=== PATIENT | female | born 1960 | race Caucasian/White ===

== ENCOUNTER 2024-03-06 03:33 | Emergency (ER) | payer OTHER, SELFPAY ==
[2024-03-06 03:37] VITALS: BP 157/91
[2024-03-06 04:03] VITALS: BMI 38.3
[2024-03-06 04:05] VITALS: BP 171/78
--- NOTE | 2024-03-06 04:08 | ED.GENMED ---
History of Present Illness
General
Chief Complaint: Fever
Source: patient
Time Seen by Provider: 03/06/24 03:58
Travel History
Have you had any contact with someone who has COVID-19?: No
Do you have any symptoms of coronavirus? Fever > 100 degrees, chills, cough, shortness of breath, sore throat, loss of taste or smell, muscle aches, or headache?: No
History of Present Illness
History of Present Illness:
64-year-old female presents to the emergency room complaining of fever, body aches. Patient has been feeling unwell for the past couple days. She went to an urgent care today where she had a urine test that was evidently abnormal. She was started
presumptively on antibiotics. Also told she had an ear infection. Patient was prescribed amoxicillin. No specific dysuria or frequency. Patient primarily focuses on the aches and pains she has throughout her body. No specific cough. No
shortness of breath.
Past History
Past History
ED Past Medical History: Asthma, COPD (?), CVA (Left sided weakness), GERD, HTN, Hypercholesterolemia, IDDM, Hypothyroidism, Psychiatric (Anxiety, PTSD) and Other (Cervical fracture, Headache, Endocarditis, Renal calculus, Cellulitis, PNA, Anemia,
DVT, )
ED Past Surgical History: Cholecystectomy, Gynecological (Hysterectomy), Urological (Bladder lift) and Other (Gastric bypass, Tummy tuck, IVC filter)
Social History
Tobacco: Former smoker
Alcohol: None
Drug: None
Personal:
Living: with family
Employment: Employed
Family History
Family History: Hypertension
Phy Exam
Physical Exam
Physical Exam:
General: Awake, Alert, Oriented X3. Patient is chronically ill
Vitals: Febrile 103
Head: Atraumatic
Eyes: Pupils equal, EOMI
Throat: Airway intact, no exudates, dry mucosa
Neck: Trachea midline
Lungs: Clear and equal b/l
Heart: Regular rate, no murmurs
Abd: Soft, Nontender, No pulsatile mass
Neuro: Nonfocal
Skin: Warm, dry, no rash
Extremities: pulses equal b/l, no edema
Course
Orders/Labs/Results
Orders:
Orders
03/06/24 04:06
Cardiac Monitoring- Treatment ONCE
0.9% Sodium Chloride 1000 ml [Nss] 1,000 ml IV BOLUS
Acetaminophen [Tylenol] 650 mg PO NOW STA
CR Chest - 2 Views Urgent
Comment:
Reason For Exam: fever
03/06/24 04:13
Complete Blood Count/With Diff Urgent
Comprehensive Metabolic Panel Urgent
Lactic Acid Q4H
Comment: CANCEL 2nd LACTIC ACID IF 1st LACTIC ACID IS LESS THAN 2
Blood Culture Q30M
ESTHER Source: Blood/Venous
Specimen Description:
Influenza A+B Rapid Molecular Urgent
ESTHER Source: Nasal Swab
Specimen Description:
03/06/24 05:21
Urinalysis Reflex To Culture Urgent
Date Specimen was Collected: 03/06/24
Time Specimen was Collected: 05:19
Urine Microscopic Reflex Cult Urgent
Abnormal Lab Results
03/06/24 03/06/24
04:13 05:21
WBC 13.8 H 10^3/uL
(4.8-10.8)
RBC 3.78 L 10^6/uL
(4.20-5.40)
Hgb 10.9 L g/dL
(12.0-16.0)
Hct 33.3 L %
(37.0-47.0)
MCHC 32.7 L g/dL
(33.0-37.0)
MPV 11.4 H fL
(7.4-10.4)
Abs Immat Gran (auto) 0.1 H 10^3/uL
(0-0.05)
Absolute Neuts (auto) 9.4 H 10^3/uL
(1.4-6.5)
Absolute Lymphs (auto) 3.6 H 10^3/uL
(1.2-3.4)
Absolute Monos (auto) 0.7 H 10^3/uL
(0.1-0.6)
Immature Gran % 0.9 H %
(0-0.5)
Chloride 109 H mmol/L
(98-107)
Carbon Dioxide 20 L mmol/L
(22-30)
BUN 22 H mg/dl
(7-17)
Creatinine 1.2 H mg/dL
(0.6-1.0)
Glucose 115 H mg/dl
(70-99)
AST 43 H U/L
(14-36)
ALT 49 H U/L
(0-35)
Leukocyte Esterase Rfl Trace A
(Negative)
03/06/24 04:13
03/06/24 04:13
Vital Signs
Initial and Last Documented VS:
Initial Vital Signs
Temp Pulse Resp BP Pulse Ox
103 F H 121 20 157/91 94
03/06/24 03:37 03/06/24 03:37 03/06/24 03:37 03/06/24 03:37 03/06/24 03:37
Last Documented Vital Signs
Temp Pulse Resp BP Pulse Ox
99.9 F 102 18 126/75 94
03/06/24 07:07 03/06/24 07:07 03/06/24 07:07 03/06/24 07:07 03/06/24 07:07
MDM/Problems Addressed
Differential Diagnosis Includes:
Dehydration, anemia, UTI, viral syndrome
MDM/Problems Addressed:
Labs show mild elevation white blood cell count. Her hemoglobin is 10.9 which is higher than many previous measurements. Chemistry show mild elevation of BUN and creatinine. LFTs are similar to previous measurements. Overall physical exam is
benign. No clear abnormalities to his require hospitalization. No new findings on chest x-ray.
*Pulse Oximetry
Patient hypoxic: no
*Critical Care Note
Total Time (30-74mins, 75-104mins- exclusive of procedures): Not Applicable
ED Attending Note
-
Portions of this chart may have been created with voice recognition software.� Occasional wrong word or��sound alike� substitutions may have occurred due to the inherent limitations of voice recognition software.
Discharge Plan
Departure
Patient Disposition: Home (Routine Discharge)
Date of Disposition: 03/06/24
Time of Disposition: 06:33
Patient with high blood pressure during this ER visit?: Yes
Condition: Good
Discharge Problem:
Fever
Instructions: Fever, Adult (DC), BLOOD PRESSURE
Prescriptions:
No Action
levothyroxine 175 mcg Tablet
175 mcg PO DAILY AT 0700
ipratropium-albuterol 0.5 mg-3 mg(2.5 mg base)/3 mL Solution For Nebulization
3 ml INHALATION R Q6 PRN (Reason: sob/wheezing)
rosuvastatin 10 mg Tablet
10 mg PO HS
prednisone 1 mg Tablet
4 mg PO DAILY
pantoprazole 40 mg Tablet,Delayed Release (Dr/Ec)
40 mg PO BID Qty: 60 0RF
acetaminophen 325 mg Tablet
650 mg PO Q6H PRN (Reason: increased temp or mild pain)
magnesium hydroxide [Milk of Magnesia] 400 mg/5 mL Suspension
30 ml PO DAILY PRN (Reason: IF NO BM X 3 DYS)
insulin aspart U-100 100 unit/mL (3 mL) Insulin Pen
7 unit SC AC
Patient Comments:
with meals
insulin glargine 100 unit/mL (3 mL) Insulin Pen
25 unit SC HS
Xarelto 20 mg tablet
20 mg PO QPM
acetaminophen 325 mg Tablet
650 mg PO Q4HPRN PRN (Reason: mild pain or temp >/= 100.4 F) Qty: 0 0RF
gabapentin 100 mg capsule
100 mg PO HS
dicyclomine 10 mg capsule
10 mg PO AC
bisacodyl 10 mg Suppository
10 mg VT ONCE PRN (Reason: CONSTIPATION NOT RELEIVED BY MOM)
zinc oxide 10 % Cream
1 applic TOPICAL BID
guaifenesin [Siltussin SA] 100 mg/5 mL liquid
100 mg PO Q4HPRN PRN (Reason: cough)
hydromorphone 4 mg Tablet
4 mg PO Q4HPRN PRN (Reason: moderate to severe pain) Qty: 15 0RF
Referrals:
Wale Slaughter MD [Family Provider] -
Activity Restrictions/Additional Instructions:
Fortunately your testing here does not show signs of a serious infection. Continue the amoxicillin. Your hemoglobin is 10.9, which is much higher than your most recent tests. In addition the other indicators for low iron are normal. Please follow
up with your family doctor for further testing.
Interventions
Interventions:
*Risk Screen - Suicide Last Done: 03/06/24 03:37
*General Assessment Last Done: 03/06/24 03:37
*Neglect/Abuse Screening Last Done: 03/06/24 03:37
ED- Fall Risk Assessment Last Done: 03/06/24 04:05
*ED COVID-19 Vaccine History Last Done: 03/06/24 04:53
*Nursing Disposition Last Done: 03/06/24 07:07
ED- Neurological Assessment Last Done: 03/06/24 04:01
ED-Skin Assessment Last Done: 03/06/24 04:02
Discharge Date and Time
Discharge Date/Time: 03/06/24 07:00
Print Language: WOLOF
[2024-03-06] MEDS: TYLENOL 650 MG PO (04:17)
[2024-03-06] MEDS: NSS 1000 IV (04:18)
[2024-03-06 04:23] LABS: % Basophils 0.6 % (0-2); % Eosinophils 0.3 % (0-6); % Immature Granulocytes 0.9 % (0-0.5); % Lymphocytes 25.7 % (20.5-51.1); % Monocytes 4.7 % (1.7-9.3); % Neutrophils 67.8 % (42.2-75.2); Absolute Basophils 0.1 10^3/uL (0-0.2); Absolute Immature Granulocytes 0.1 10^3/uL (0-0.05); Absolute Lymphocytes 3.6 10^3/uL (1.2-3.4); Absolute Monocytes 0.7 10^3/uL (0.1-0.6); Absolute Neutrophils 9.4 10^3/uL (1.4-6.5); Hematocrit 33.3 % (37.0-47.0); Hemoglobin 10.9 g/dL (12.0-16.0); Mean Corp Hgb Conc. 32.7 g/dL (33.0-37.0); Mean Corpuscular Hgb 28.8 pg (27.0-31.0); Mean Corpuscular Volume 88.1 fL (81.0-99.0); Mean Platelet Volume 11.4 fL (7.4-10.4); Nucleated Red Blood Cells % 0 %; Platelet Count 190 10^3/uL (130-400); Red Blood Cell Count 3.78 10^6/uL (4.20-5.40); White Blood Cell Count 13.8 10^3/uL (4.8-10.8)
[2024-03-06 04:34] LABS: ALT (SGPT) 49 U/L (0-35); AST (SGOT) 43 U/L (14-36); Albumin 3.8 g/dl (3.5-5.0); Alkaline Phosphatase 106 U/L (38-126); Blood Urea Nitrogen 22 mg/dl (7-17); Calcium 8.5 mg/dl (8.4-10.2); Carbon Dioxide 20 mmol/L (22-30); Chloride 109 mmol/L (98-107); Estimated Creatinine Clearance 48 ml/min; Glucose 115 mg/dl (70-99); Lactic Acid 1.1 mmol/L (0.7-2.0); Potassium 4.4 mmol/L (3.5-5.1); Sodium 135 mmol/L (135-145); Total Bilirubin 0.6 mg/dl (0.2-1.3); Total Protein 6.7 g/dl (6.3-8.2); eGFR 50.86
[2024-03-06 05:13] VITALS: BP 154/85
[2024-03-06 05:29] LABS: Urine Albumin Negative (Neg - Trace); Urine Bilirubin Negative (Negative); Urine Character Clear (Clear); Urine Color Yellow; Urine Glucose Negative (Negative); Urine Ketone Negative (Negative); Urine Leukocyte Trace (Negative); Urine Nitrite Negative (Negative); Urine Occult Blood Negative (Negative); Urine Urobilinogen Negative (Neg - 1+)
[2024-03-06 05:39] LABS: Urine Squamous Cell >30 /LPF (Few)
[2024-03-06 05:40] LABS: Urine Red Blood Cell 0-2 /HPF (0-2)
[2024-03-06 06:00] VITALS: BP 126/75
[2024-03-06 07:07] VITALS: BP 126/75
== END 2024-03-06 07:00 | disposition home or self-care (01) ==
LOC: EMR 03:33
PROVIDERS: EMERGENCY PHYSICIAN Emergency Medicine; FAMILY PHYSICIAN Internal Medicine
DX: R50.9 Fever, unspecified (principal); J45.909 Unspecified asthma, uncomplicated; K21.9 Gastro-esophageal reflux disease without esophagitis; I10 Essential (primary) hypertension; E78.00 Pure hypercholesterolemia, unspecified; E11.9 Type 2 diabetes mellitus without complications; E03.9 Hypothyroidism, unspecified; F41.9 Anxiety disorder, unspecified; F43.10 Post-traumatic stress disorder, unspecified; D64.9 Anemia, unspecified; Z82.49 Family history of ischemic heart disease and other diseases of the circulatory system; Z86.718 Personal history of other venous thrombosis and embolism; Z86.73 Personal history of transient ischemic attack (TIA), and cerebral infarction without residual deficits; Z87.442 Personal history of urinary calculi; Z87.891 Personal history of nicotine dependence; Z90.49 Acquired absence of other specified parts of digestive tract; Z90.710 Acquired absence of both cervix and uterus; Z98.84 Bariatric surgery status
CPT/HCPCS: 99283; 71046; 80053; 81003; 81015; 83605; 85025; 87040; 87502

== ENCOUNTER 2024-05-13 03:33 | Emergency (ER) | payer OTHER, SELFPAY ==
[2024-05-13 03:39] VITALS: BP 177/90
[2024-05-13 04:10] LABS: % Basophils 0.5 % (0-2); % Eosinophils 0.9 % (0-6); % Immature Granulocytes 2.8 % (0-0.5); % Lymphocytes 31.1 % (20.5-51.1); % Monocytes 5.6 % (1.7-9.3); % Neutrophils 59.1 % (42.2-75.2); Absolute Basophils 0.1 10^3/uL (0-0.2); Absolute Eosinophils 0.1 10^3/uL (0-0.7); Absolute Immature Granulocytes 0.3 10^3/uL (0-0.05); Absolute Lymphocytes 3.2 10^3/uL (1.2-3.4); Absolute Monocytes 0.6 10^3/uL (0.1-0.6); Absolute Neutrophils 6.2 10^3/uL (1.4-6.5); Hematocrit 30.2 % (37.0-47.0); Hemoglobin 9.8 g/dL (12.0-16.0); Mean Corp Hgb Conc. 32.5 g/dL (33.0-37.0); Mean Corpuscular Hgb 28.3 pg (27.0-31.0); Mean Corpuscular Volume 87.3 fL (81.0-99.0); Mean Platelet Volume 10.8 fL (7.4-10.4); Nucleated Red Blood Cells % 0 %; Platelet Count 166 10^3/uL (130-400); Red Blood Cell Count 3.46 10^6/uL (4.20-5.40); Red Cell Dist. Width 18.6 % (11.5-14.5); White Blood Cell Count 10.4 10^3/uL (4.8-10.8)
[2024-05-13 04:20] VITALS: BP 159/76
[2024-05-13 04:25] LABS: ALT (SGPT) 62 U/L (0-35); AST (SGOT) 51 U/L (14-36); Albumin 3.2 g/dl (3.5-5.0); Alkaline Phosphatase 89 U/L (38-126); Blood Urea Nitrogen 25 mg/dl (7-17); Calcium 9.1 mg/dl (8.4-10.2); Carbon Dioxide 20 mmol/L (22-30); Chloride 112 mmol/L (98-107); Glucose 170 mg/dl (70-99); Potassium 5.4 mmol/L (3.5-5.1); Sodium 139 mmol/L (135-145); Total Bilirubin 0.6 mg/dl (0.2-1.3); Total Protein 6.4 g/dl (6.3-8.2); eGFR > 60.00
[2024-05-13 05:00] VITALS: BP 160/81
[2024-05-13 05:04] LABS: Troponin I 0.014 ng/ml
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
[2024-05-13 05:55] LABS: Urine Albumin Negative (Neg - Trace); Urine Bilirubin Negative (Negative); Urine Character Clear (Clear); Urine Color Yellow; Urine Glucose Negative (Negative); Urine Ketone Negative (Negative); Urine Leukocyte Negative (Negative); Urine Nitrite Negative (Negative); Urine Occult Blood Negative (Negative); Urine Urobilinogen Negative (Neg - 1+)
[2024-05-13] MEDS: MAALOX 50 PO (06:11)
[2024-05-13] MEDS: DILAUDID 1 MG IV (06:12)
[2024-05-13] MEDS: CARAFATE SUSPENSION 1 GM PO (06:18)
[2024-05-13 06:49] VITALS: BP 132/86
== END 2024-05-13 06:50 | disposition home or self-care (01) ==
LOC: EMR 03:33
PROVIDERS: Emergency Medicine; EMERGENCY PHYSICIAN Emergency Medicine; FAMILY PHYSICIAN Internal Medicine
DX: K21.9 Gastro-esophageal reflux disease without esophagitis (principal); E11.9 Type 2 diabetes mellitus without complications; J44.89 Other specified chronic obstructive pulmonary disease; E03.9 Hypothyroidism, unspecified; E78.00 Pure hypercholesterolemia, unspecified; D64.9 Anemia, unspecified; I10 Essential (primary) hypertension; Z79.52 Long term (current) use of systemic steroids; Z82.49 Family history of ischemic heart disease and other diseases of the circulatory system; Z86.718 Personal history of other venous thrombosis and embolism; Z86.73 Personal history of transient ischemic attack (TIA), and cerebral infarction without residual deficits; Z87.442 Personal history of urinary calculi; Z87.891 Personal history of nicotine dependence; Z90.49 Acquired absence of other specified parts of digestive tract; Z90.710 Acquired absence of both cervix and uterus; Z98.84 Bariatric surgery status
CPT/HCPCS: 99283; 96374; 80053; 81003; 84484; 85025; 93005

== ENCOUNTER 2024-08-07 21:10 | Emergency (ER) | payer OTHER, SELFPAY ==
[2024-08-07 21:13] VITALS: BP 156/81
[2024-08-07 21:56] VITALS: BMI 36.3
--- NOTE | 2024-08-07 22:27 | ED.GENMED ---
History of Present Illness
General
Chief Complaint: Eye Problems
Source: patient
Exam Limitations: none
Time Seen by Provider: 08/07/24 21:23
Nursing documentation reviewed up to this point in time: agreed with
History of Present Illness
History of Present Illness:
64-year-old female presents to the emergency room for evaluation of redness in the right eye. She says that she first noticed it last week, over the past few days noticed it had gotten thicker and came to the ER for evaluation. She denies any eye
pain. She denies any vision loss. She denies any blurriness of the vision. She denies any trauma to the eye. She does report minor foreign body sensation in the right eye. She is notably on Xarelto. She does admit that sneezing may have
preceded this.
Past History
Past History
ED Past Medical History: Asthma, COPD (?), CVA (Left sided weakness), GERD, HTN, Hypercholesterolemia, IDDM, Hypothyroidism, Psychiatric (Anxiety, PTSD) and Other (Cervical fracture, Headache, Endocarditis, Renal calculus, Cellulitis, PNA, Anemia,
DVT, )
ED Past Surgical History: Cholecystectomy, Gynecological (Hysterectomy), Urological (Bladder lift) and Other (Gastric bypass, Tummy tuck, IVC filter)
Social History
Tobacco: Former smoker
Alcohol: None
Drug: None
Personal:
Living: with family
Employment: Employed
Family History
Family History: Hypertension
Review of Systems
Review of Systems
All Other Systems: ROS reviewed and negative except as documented in HPI and ROS
EENT: Reports other (Redness in the right eye; denies vision loss, eye pain)
Phy Exam
Physical Exam
Physical Exam:
General: Well appearing and non-toxic
HEENT: protecting airway; patient has some conjunctival hemorrhage right eye encompassing roughly half of the lateral aspect of the eye; no hyphema or hypopyon; visual acuity excellent at 20/16; extraocular movements are intact without pain; no
foreign body noted, on fluorescein exam no corneal abrasion, negative Barbara sign; eye pressures noted using tonometer 15,13,13 left/ 10,9,10 right
Neck: appears supple
CV: No evidence of cyanosis
Resp: No accessory muscle use
Abd: Non-distended
Extremities: No deformities
Neuro: Alert
Psych: Normal affect
Skin: Intact
Scores
Heart Failure Risk
Heart Failure Risk Score: Not Applicable
Heart Score for Chest Pain Patients
STEMI patient?: Not applicable
Withdrawal Assessment of Alcohol
Withdrawal Assessment Completed?: Not applicable
Course
Orders/Labs/Results
Orders:
Orders
08/07/24 21:27
Visual Acuity- Treatment ONCE
Vital Signs
Initial and Last Documented VS:
Initial Vital Signs
Temp Pulse Resp BP Pulse Ox
36.6 C 88 18 156/81 96
08/07/24 21:13 08/07/24 21:13 08/07/24 21:13 08/07/24 21:13 08/07/24 21:13
Last Documented Vital Signs
Temp Pulse Resp BP Pulse Ox
36.6 C 88 18 156/81 96
08/07/24 21:13 08/07/24 21:13 08/07/24 21:13 08/07/24 21:13 08/07/24 21:13
MDM/Problems Addressed
Differential Diagnosis Includes:
Subconjunctival hemorrhage
MDM/Problems Addressed:
64-year-old female presents with right subconjunctival hemorrhage. Visual acuity intact, exam reassuring as above. Nothing to suggest globe rupture, no eye trauma. Provided reassurance regarding diagnosis and prognosis. Stable for discharge.
Advised to return with any eye pain, vision loss or any other concerning symptoms. All questions answered.
Acute Exacerbation and/or Progression of Chronic Illness:
Acutely hypertensive
Acute Exacerbation and/or Progression of Chronic Illness: HTN
*Pulse Oximetry
Patient hypoxic: no
*Critical Care Note
Total Time (30-74mins, 75-104mins- exclusive of procedures): Not Applicable
Data Reviewed
Source: patient
ED Attending Note
-
Portions of this chart may have been created with voice recognition software.� Occasional wrong word or��sound alike� substitutions may have occurred due to the inherent limitations of voice recognition software.
Discharge Plan
Departure
Prescriptions:
No Action
levothyroxine 175 mcg Tablet
175 mcg PO DAILY AT 0700
ipratropium-albuterol 0.5 mg-3 mg(2.5 mg base)/3 mL Solution For Nebulization
3 ml INHALATION R Q6 PRN (Reason: sob/wheezing)
rosuvastatin 10 mg Tablet
10 mg PO HS
prednisone 1 mg Tablet
4 mg PO DAILY
pantoprazole 40 mg Tablet,Delayed Release (Dr/Ec)
40 mg PO BID Qty: 60 0RF
acetaminophen 325 mg Tablet
650 mg PO Q6H PRN (Reason: increased temp or mild pain)
magnesium hydroxide [Milk of Magnesia] 400 mg/5 mL Suspension
30 ml PO DAILY PRN (Reason: IF NO BM X 3 DYS)
insulin aspart U-100 100 unit/mL (3 mL) Insulin Pen
7 unit SC AC
Patient Comments:
with meals
insulin glargine 100 unit/mL (3 mL) Insulin Pen
25 unit SC HS
Xarelto 20 mg tablet
20 mg PO QPM
acetaminophen 325 mg Tablet
650 mg PO Q4HPRN PRN (Reason: mild pain or temp >/= 100.4 F) Qty: 0 0RF
gabapentin 100 mg capsule
100 mg PO HS
dicyclomine 10 mg capsule
10 mg PO AC
bisacodyl 10 mg Suppository
10 mg SD ONCE PRN (Reason: CONSTIPATION NOT RELEIVED BY MOM)
zinc oxide 10 % Cream
1 applic TOPICAL BID
guaifenesin [Siltussin SA] 100 mg/5 mL liquid
100 mg PO Q4HPRN PRN (Reason: cough)
hydromorphone 4 mg Tablet
4 mg PO Q4HPRN PRN (Reason: moderate to severe pain) Qty: 15 0RF
sucralfate [Carafate] 1 gram tablet
1 g PO QIDPRN PRN (Reason: ACID REFLUX) Qty: 60 0RF
Referrals:
Patrick Slaughter MD [Family Provider] -
Discharge Date and Time
Print Language: MARTINIQUAIS
[2024-08-07 22:45] VITALS: BP 139/92
== END 2024-08-07 22:50 | disposition home or self-care (01) ==
LOC: EMR 21:10
PROVIDERS: EMERGENCY PHYSICIAN Emergency Medicine; FAMILY PHYSICIAN Internal Medicine
DX: H11.31 Conjunctival hemorrhage, right eye (principal); J44.89 Other specified chronic obstructive pulmonary disease; K21.9 Gastro-esophageal reflux disease without esophagitis; I10 Essential (primary) hypertension; E78.00 Pure hypercholesterolemia, unspecified; E11.9 Type 2 diabetes mellitus without complications; E03.9 Hypothyroidism, unspecified; F41.9 Anxiety disorder, unspecified; F43.10 Post-traumatic stress disorder, unspecified; Z79.01 Long term (current) use of anticoagulants; Z82.49 Family history of ischemic heart disease and other diseases of the circulatory system; Z86.718 Personal history of other venous thrombosis and embolism; Z86.73 Personal history of transient ischemic attack (TIA), and cerebral infarction without residual deficits; Z87.442 Personal history of urinary calculi; Z87.891 Personal history of nicotine dependence; Z90.49 Acquired absence of other specified parts of digestive tract; Z90.710 Acquired absence of both cervix and uterus; Z98.84 Bariatric surgery status
CPT/HCPCS: 99282

== ENCOUNTER 2024-09-26 16:14 | Emergency (ER) | payer OTHER, SELFPAY ==
[2024-09-26 16:14] VITALS: BMI 38.4
[2024-09-26 16:18] VITALS: BP 132/88
--- NOTE | 2024-09-26 17:10 | ED.GENMED ---
History of Present Illness
General
Chief Complaint: Breathing Problem
Source: patient
Exam Limitations: none
Time Seen by Provider: 09/26/24 17:00
Nursing documentation reviewed up to this point in time: agreed with
History of Present Illness
History of Present Illness:
Pleasant 64-year-old female presents to the emergency department with a multitude of complaints. She states that she feels short of breath. She does have a history of diabetes, asthma, hypothyroidism, hyperlipidemia, cholecystectomy, bladder
sling, abdominoplasty. She states that she was a smoker but quit 10 years ago. She does take 2 L of oxygen at night but states that it has not been helping. She also reports swelling in her bilateral lower extremities. She reports no fevers but
feels that she has an infection. She had 2 dental implants placed last week. She initially was on clindamycin for dental infection and then when the implants were placed, she was started on Bactrim. Patient states that she has a cough that she
says is productive with green sputum.
Past History
Past History
ED Past Medical History: Asthma, COPD (?), CVA (Left sided weakness), GERD, HTN, Hypercholesterolemia, IDDM, Hypothyroidism, Psychiatric (Anxiety, PTSD) and Other (Cervical fracture, Headache, Endocarditis, Renal calculus, Cellulitis, PNA, Anemia,
DVT, )
ED Past Surgical History: Cholecystectomy, Gynecological (Hysterectomy), Urological (Bladder lift) and Other (Gastric bypass, Tummy tuck, IVC filter)
Social History
Tobacco: Former smoker
Alcohol: None
Drug: None
Personal:
Living: with family
Employment: Employed
Family History
Family History: Hypertension
Review of Systems
Review of Systems
Allergies reviewed?: Yes
All Other Systems: ROS reviewed and negative except as documented in HPI and ROS
EENT: Reports mouth pain
Respiratory: Reports cough and trouble breathing
Cardiac: Denies chest pain, diaphoresis, palpitations or syncope
ABD/GI: Reports no symptoms; Denies nausea or vomiting
Musculoskeletal: Reports joint swelling and edema
Skin: Reports no symptoms
Psychiatric: Reports no symptoms
Phy Exam
General Physical Exam
General Presentation: well appearing and no apparent distress
General Skin: warm and dry
General Habitus: normal
General Mental: alert
General Hydration: appears well hydrated
ENT Exam
ENT Exam: EOMI, pharynx normal, neck supple and normocephalic
Eye Exam
Eye Exam: PERRL, cornea clear and conjunctiva normal
Cardiovascular Exam
Cardiovascular Exam: regular rate/rhythm, no edema, no murmur and normal peripheral pulses
Pulmonary Exam
Pulmonary Exam: lungs clear, no respiratory distress, no rales, no crackles, no rhonchi, no stridor and generalized wheezing
Cough: coarse cough
Breath Sounds: Wheeze: generalized
Gastrointestinal Exam
Gastrointestinal Exam: normal bowel sounds, non tender, soft, no organomegaly, no pulsatile mass and non distended
Neurological Exam
Neurological Exam: alert, oriented x3, no motor deficits and speech normal
Musculoskeletal Exam
Musculoskeletal Exam: full ROM and edema
Skin Exam
Skin Exam: normal color, warm/dry, no rash and no petechia
Psychiatric Exam
Psychiatric Exam: normal mood/affect
Scores
Heart Failure Risk
Heart Failure Risk Score: Not Applicable
Course
Orders/Labs/Results
Orders:
Orders
09/26/24 17:09
Electrocardiogram (*1) Urgent
Reason for Study: Other
Other Reason for Exam: sepsis
EKG- Treatment ONCE
CR Chest - 2 Views Urgent
Comment:
Reason For Exam: dyspnea
09/26/24 17:38
Complete Blood Count/With Diff Urgent
Comprehensive Metabolic Panel Urgent
Lactic Acid Q4H
Comment: CANCEL 2nd LACTIC ACID IF 1st LACTIC ACID IS LESS THAN 2
NT-proBNP Urgent
PTT Urgent
Prothrombin Time Urgent
Troponin I Urgent
Blood Culture Q30M
ESTHER Source: Blood/Venous
Specimen Description:
Blood Culture Q30M
ESTHER Source: Blood/Venous
Specimen Description:
09/26/24 17:52
Urinalysis Reflex To Culture Urgent
Date Specimen was Collected: 09/26/24
Time Specimen was Collected: 17:49
09/26/24 19:31
Furosemide [Lasix] 40 mg PO NOW STA
09/26/24 19:36
HYDROmorphone [Dilaudid] 0.5 mg .ROUTE .STK-MED ONE
09/26/24 19:37
HYDROmorphone [Dilaudid] 0.5 mg IV NOW STA
Abnormal Lab Results
09/26/24
17:38
WBC 11.6 H 10^3/uL
(4.8-10.8)
RBC 3.48 L 10^6/uL
(4.20-5.40)
Hgb 9.7 L g/dL
(12.0-16.0)
Hct 29.4 L %
(37.0-47.0)
RDW 17.9 H %
(11.5-14.5)
Abs Immat Gran (auto) 0.2 H 10^3/uL
(0-0.05)
Absolute Neuts (auto) 7.9 H 10^3/uL
(1.4-6.5)
Absolute Monos (auto) 0.7 H 10^3/uL
(0.1-0.6)
Immature Gran % 1.6 H %
(0-0.5)
PT 17.6 H Sec
(11.4-14.6)
Sodium 133 L mmol/L
(135-145)
Potassium 5.6 H mmol/L
(3.5-5.1)
Carbon Dioxide 20 L mmol/L
(22-30)
BUN 30 H mg/dl
(7-17)
Creatinine 1.3 H mg/dL
(0.6-1.0)
Glucose 112 H mg/dl
(70-99)
AST 51 H U/L
(14-36)
ALT 75 H U/L
(0-35)
Total Protein 6.2 L g/dl
(6.3-8.2)
09/26/24 17:38
09/26/24 17:38
Vital Signs
Initial and Last Documented VS:
Initial Vital Signs
Temp Pulse Resp BP Pulse Ox
98.6 F 85 16 132/88 98
09/26/24 16:18 09/26/24 16:18 09/26/24 16:18 09/26/24 16:18 09/26/24 16:18
Last Documented Vital Signs
Temp Pulse Resp BP Pulse Ox
98.6 F 74 20 179/98 97
09/26/24 16:18 09/26/24 19:47 09/26/24 19:47 09/26/24 19:47 09/26/24 20:00
*Critical Care Note
Total Time (30-74mins, 75-104mins- exclusive of procedures): Not Applicable
Update Note
Update Note:
09/26/20242024 PM: Patient feeling better in absolutely no acute distress at time of discharge. Patient wishes to go home. Discussed lab work and imaging with patient. She has no further questions at this time. Being discharged in improved
condition. She had already called for her ride.
ED Attending Note
-
Portions of this chart may have been created with voice recognition software.� Occasional wrong word or��sound alike� substitutions may have occurred due to the inherent limitations of voice recognition software.
Discharge Plan
Departure
Patient Disposition: Home (Routine Discharge)
Date of Disposition: 09/26/24
Time of Disposition: 20:26
Patient with high blood pressure during this ER visit?: Yes
Condition: Good
Discharge Problem:
COPD (chronic obstructive pulmonary disease), mild hyperkalemia, Leg edema
Instructions: Shortness of Breath (Dyspnea) (DC), Swelling, Hyperkalemia, BLOOD PRESSURE
Prescriptions:
New
furosemide [Lasix] 20 mg tablet
20 mg PO DAILY Qty: 10 0RF
No Action
levothyroxine 175 mcg Tablet
175 mcg PO DAILY AT 0700
ipratropium-albuterol 0.5 mg-3 mg(2.5 mg base)/3 mL Solution For Nebulization
3 ml INHALATION R Q6 PRN (Reason: sob/wheezing)
rosuvastatin 10 mg Tablet
10 mg PO HS
prednisone 1 mg Tablet
4 mg PO DAILY
pantoprazole 40 mg Tablet,Delayed Release (Dr/Ec)
40 mg PO BID Qty: 60 0RF
acetaminophen 325 mg Tablet
650 mg PO Q6H PRN (Reason: increased temp or mild pain)
magnesium hydroxide [Milk of Magnesia] 400 mg/5 mL Suspension
30 ml PO DAILY PRN (Reason: IF NO BM X 3 DYS)
insulin aspart U-100 100 unit/mL (3 mL) Insulin Pen
7 unit SC AC
Patient Comments:
with meals
insulin glargine 100 unit/mL (3 mL) Insulin Pen
25 unit SC HS
Xarelto 20 mg tablet
20 mg PO QPM
acetaminophen 325 mg Tablet
650 mg PO Q4HPRN PRN (Reason: mild pain or temp >/= 100.4 F) Qty: 0 0RF
gabapentin 100 mg capsule
100 mg PO HS
dicyclomine 10 mg capsule
10 mg PO AC
bisacodyl 10 mg Suppository
10 mg MD ONCE PRN (Reason: CONSTIPATION NOT RELEIVED BY MOM)
zinc oxide 10 % Cream
1 applic TOPICAL BID
guaifenesin [Siltussin SA] 100 mg/5 mL liquid
100 mg PO Q4HPRN PRN (Reason: cough)
hydromorphone 4 mg Tablet
4 mg PO Q4HPRN PRN (Reason: moderate to severe pain) Qty: 15 0RF
sucralfate [Carafate] 1 gram tablet
1 g PO QIDPRN PRN (Reason: ACID REFLUX) Qty: 60 0RF
Referrals:
Patrick Slaughter MD [Family Provider] -
Activity Restrictions/Additional Instructions:
Your prescriptions were sent electronically to the pharmacy that you specified.
It was a pleasure meeting you and taking part in your care. We hope for your continued healing and wellness.
Please read discharge instructions in their entirety. However, they are for general education and may not describe your exact diagnosis at discharge. Information on your ER visit and medical conditions were discussed with you along with appropriate
follow up information...
If indicated, please take your medications as instructed and indicated on discharge paperwork.
Please schedule a follow up appointment as directed. Call to schedule an appointment
Please return to the emergency department with ANY change in, persisting, or worsening of symptoms. If any of your symptoms do not improve, or persist, or become more severe within 6-12 hours, please return to the emergency department for further
care.
Please return to the emergency department if you develop a headache, neck pain/stiffness, fever greater than 100.4F, chest pain, shortness of breath, persistent nausea, vomiting, slurred speech, difficulty walking, numbness/tingling, weakness, signs
of infection or any other symptoms that are worrisome to you.
If you have any questions or concerns please do not hesitate to call the Hospital at
Interventions
Interventions:
*Risk Screen - Suicide Last Done: 09/26/24 16:18
*General Assessment Last Done: 09/26/24 16:18
*Neglect/Abuse Screening Last Done: 09/26/24 16:18
ED- Fall Risk Assessment Last Done: 09/26/24 18:01
*ED COVID-19 Vaccine History Last Done: 09/26/24 20:44
*Nursing Disposition Last Done: 09/26/24 20:44
ED- Cardiac Assessment Last Done: 09/26/24 18:13
ED- Pulmonary Assessment Last Done: 09/26/24 18:01
Discharge Date and Time
Discharge Date/Time: 09/26/24 20:46
Print Language: SLOVENIAN
[2024-09-26 17:49] LABS: % Basophils 0.3 % (0-2); % Eosinophils 0.4 % (0-6); % Immature Granulocytes 1.6 % (0-0.5); % Lymphocytes 23.1 % (20.5-51.1); % Monocytes 6.2 % (1.7-9.3); % Neutrophils 68.4 % (42.2-75.2); Absolute Eosinophils 0.1 10^3/uL (0-0.7); Absolute Immature Granulocytes 0.2 10^3/uL (0-0.05); Absolute Lymphocytes 2.7 10^3/uL (1.2-3.4); Absolute Monocytes 0.7 10^3/uL (0.1-0.6); Absolute Neutrophils 7.9 10^3/uL (1.4-6.5); Hematocrit 29.4 % (37.0-47.0); Hemoglobin 9.7 g/dL (12.0-16.0); Mean Corpuscular Hgb 27.9 pg (27.0-31.0); Mean Corpuscular Volume 84.5 fL (81.0-99.0); Mean Platelet Volume 10.4 fL (7.4-10.4); Nucleated Red Blood Cells % 0 %; Platelet Count 186 10^3/uL (130-400); Red Blood Cell Count 3.48 10^6/uL (4.20-5.40); Red Cell Dist. Width 17.9 % (11.5-14.5); White Blood Cell Count 11.6 10^3/uL (4.8-10.8)
[2024-09-26 17:53] VITALS: BP 168/78
[2024-09-26 17:58] LABS: INR 1.46; PT 17.6 Sec (11.4-14.6)
[2024-09-26 17:59] LABS: APTT 31.6 Sec (23.4-35.0)
[2024-09-26 18:00] VITALS: BP 152/73
[2024-09-26 18:01] LABS: Urine Albumin Trace (Neg - Trace); Urine Bilirubin Negative (Negative); Urine Character Clear (Clear); Urine Color Yellow; Urine Glucose Negative (Negative); Urine Ketone Negative (Negative); Urine Leukocyte Negative (Negative); Urine Nitrite Negative (Negative); Urine Occult Blood Negative (Negative); Urine Specific Gravity 1.015 (<1.030); Urine Urobilinogen Negative (Neg - 1+)
[2024-09-26 18:01] LABS: ALT (SGPT) 75 U/L (0-35); AST (SGOT) 51 U/L (14-36); Albumin 3.7 g/dl (3.5-5.0); Alkaline Phosphatase 110 U/L (38-126); Blood Urea Nitrogen 30 mg/dl (7-17); Calcium 8.7 mg/dl (8.4-10.2); Carbon Dioxide 20 mmol/L (22-30); Chloride 102 mmol/L (98-107); Estimated Creatinine Clearance 46 ml/min; Glucose 112 mg/dl (70-99); Potassium 5.6 mmol/L (3.5-5.1); Sodium 133 mmol/L (135-145); Total Bilirubin 0.3 mg/dl (0.2-1.3); Total Protein 6.2 g/dl (6.3-8.2); eGFR 46.21
[2024-09-26 18:11] LABS: Lactic Acid 1.1 mmol/L (0.7-2.0)
[2024-09-26 18:24] LABS: NT-proBNP 1000 pg/ml; Troponin I < 0.012 ng/ml
[2024-09-26] MEDS: LASIX 40 MG PO (19:33)
[2024-09-26 19:34] VITALS: BP 179/98
[2024-09-26] MEDS: DILAUDID 0.5 MG IV (19:37)
[2024-09-26 19:47] VITALS: BP 179/98
== END 2024-09-26 20:46 | disposition home or self-care (01) ==
LOC: EMR 16:14
PROVIDERS: EMERGENCY PHYSICIAN Student in an Organized Health Care Education/Training Program; FAMILY PHYSICIAN Internal Medicine
DX: J44.89 Other specified chronic obstructive pulmonary disease (principal); E87.5 Hyperkalemia; R60.0 Localized edema; I10 Essential (primary) hypertension; E11.9 Type 2 diabetes mellitus without complications; E03.9 Hypothyroidism, unspecified; E78.00 Pure hypercholesterolemia, unspecified; Z87.891 Personal history of nicotine dependence
CPT/HCPCS: 99285; 96374; 71046; 80053; 81003; 83605; 83880; 84484; 85025; 85610; 85730; 87040; 93005

== ENCOUNTER 2024-10-29 21:42 | Emergency (ER) | payer OTHER, SELFPAY ==
[2024-10-29 21:47] VITALS: BP 153/83
[2024-10-29 22:12] LABS: % Basophils 0.6 % (0-2); % Eosinophils 0.6 % (0-6); % Immature Granulocytes 0.7 % (0-0.5); % Lymphocytes 35.4 % (20.5-51.1); % Monocytes 5.2 % (1.7-9.3); % Neutrophils 57.5 % (42.2-75.2); Absolute Basophils 0.1 10^3/uL (0-0.2); Absolute Eosinophils 0.1 10^3/uL (0-0.7); Absolute Immature Granulocytes 0.1 10^3/uL (0-0.05); Absolute Lymphocytes 3.2 10^3/uL (1.2-3.4); Absolute Monocytes 0.5 10^3/uL (0.1-0.6); Absolute Neutrophils 5.1 10^3/uL (1.4-6.5); Hematocrit 35.2 % (37.0-47.0); Hemoglobin 10.7 g/dL (12.0-16.0); Mean Corp Hgb Conc. 30.4 g/dL (33.0-37.0); Mean Corpuscular Hgb 28.7 pg (27.0-31.0); Mean Corpuscular Volume 94.4 fL (81.0-99.0); Nucleated Red Blood Cells % 0 %; Platelet Count 178 10^3/uL (130-400); Red Blood Cell Count 3.73 10^6/uL (4.20-5.40); Red Cell Dist. Width 15.5 % (11.5-14.5); White Blood Cell Count 8.9 10^3/uL (4.8-10.8)
[2024-10-29 22:23] LABS: ALT (SGPT) 32 U/L (0-35); AST (SGOT) 26 U/L (14-36); Albumin 3.8 g/dl (3.5-5.0); Alkaline Phosphatase 101 U/L (38-126); Blood Urea Nitrogen 20 mg/dl (7-17); Carbon Dioxide 23 mmol/L (22-30); Chloride 109 mmol/L (98-107); Glucose 113 mg/dl (70-99); Lipase 101 U/L (23-300); Sodium 141 mmol/L (135-145); Total Bilirubin 0.3 mg/dl (0.2-1.3); Total Protein 6.6 g/dl (6.3-8.2); eGFR 56.46
--- NOTE | 2024-10-29 22:46 | ED.GENMED ---
History of Present Illness
<DERIC Ricci - Last Filed: 10/29/24 22:46>
General
Chief Complaint: Abdominal Symptoms
Time Seen by Provider: 10/29/24 22:43
<Eliseo Speulveda MD - Last Filed: 10/30/24 02:00>
General
Source: patient
Exam Limitations: none
Nursing documentation reviewed up to this point in time: agreed with
History of Present Illness
History of Present Illness:
64-year-old female with history as documented presents to the emergency room for evaluation of flank pain. Patient reports onset of symptoms yesterday and they were worsening today which prompted ER visit. She reports initially she had some nausea
and an episode of vomiting. She also had some loose stools yesterday. This morning once again had some nausea with vomiting and then developed right sided flank pain. She reports that she took some tizanidine thinking it could be muscular pain
but this did not help and so she came to the ER for evaluation. She denies abdominal pain. She has not had any fever or chills. She denies any dysuria, hematuria, change in urinary frequency. She denies any other complaints. She does have prior
history of gastric bypass, hysterectomy, cholecystectomy.
Past History
<DERIC Ricci - Last Filed: 10/29/24 22:46>
Past History
ED Past Medical History: Asthma, COPD (?), CVA (Left sided weakness), GERD, HTN, Hypercholesterolemia, IDDM, Hypothyroidism, Psychiatric (Anxiety, PTSD) and Other (Cervical fracture, Headache, Endocarditis, Renal calculus, Cellulitis, PNA, Anemia,
DVT, )
ED Past Surgical History: Cholecystectomy, Gynecological (Hysterectomy), Urological (Bladder lift) and Other (Gastric bypass, Tummy tuck, IVC filter)
Social History
Tobacco: Former smoker
Alcohol: None
Drug: None
Personal:
Living: with family
Employment: Employed
Family History
Family History: Hypertension
Review of Systems
<Eliseo Sepulveda MD - Last Filed: 10/30/24 02:00>
Review of Systems
All Other Systems: ROS reviewed and negative except as documented in HPI and ROS
Constitutional: Denies fever
Respiratory: Denies trouble breathing
Cardiac: Denies chest pain
ABD/GI: Reports nausea, vomiting and diarrhea; Denies abdominal pain
: Reports flank pain; Denies dysuria, frequency or bleeding
Musculoskeletal: Denies neck pain
Neurological: Denies dizzy or headache
Phy Exam
<Eliseo Sepulveda MD - Last Filed: 10/30/24 02:00>
Physical Exam
Physical Exam:
General: Awake, alert, oriented x3; no acute distress
Head: Normocephalic, atraumatic
Eyes: Conjunctiva normal, sclera anicteric
Throat: Airway intact, handling secretions
Neck: Trachea midline, supple without meningismus
Lungs: Breathing comfortably no distress
Heart: Regular rate
Abd: Obese, soft, nondistended, nontender
Back: Mild paraspinal tenderness right upper lumbar region, no CVA tenderness
Neuro: Cranial nerves grossly intact, speech fluid, no gross motor or sensory deficits
Extremities: Warm and well-perfused
Scores
<Eliseo Sepulveda MD - Last Filed: 10/30/24 02:00>
Heart Failure Risk
Heart Failure Risk Score: Not Applicable
Heart Score for Chest Pain Patients
STEMI patient?: Not applicable
Withdrawal Assessment of Alcohol
Withdrawal Assessment Completed?: Not applicable
Course
<DERIC Ricci - Last Filed: 10/29/24 22:46>
Orders/Labs/Results
Orders:
Orders
10/29/24 21:52
IV Insert/Care/Rem.- Treatment PRN
10/29/24 21:59
Complete Blood Count/With Diff Urgent
Comprehensive Metabolic Panel Urgent
Lipase Urgent
10/29/24 23:03
HYDROmorphone [Dilaudid] 0.5 mg IV NOW STA
10/29/24 23:04
0.9% Sodium Chloride 500 ml [Nss] 500 ml IV BOLUS
10/29/24 23:37
Urinalysis Reflex To Culture Urgent
Date Specimen was Collected: 10/29/24
Time Specimen was Collected: 21:52
Urine Microscopic Reflex Cult Urgent
Urine Culture Urgent
ESTHER Source: U
Specimen Description:
Date Specimen was Collected: 10/29/24
Time Specimen was Collected: 21:52
10/30/24 00:01
CT Abd/pel Without Iv Or Oral Urgent
Reason For Exam: R flank pain
Abnormal Lab Results
10/29/24 10/29/24
21:59 23:37
RBC 3.73 L 10^6/uL
(4.20-5.40)
Hgb 10.7 L g/dL
(12.0-16.0)
Hct 35.2 L %
(37.0-47.0)
MCHC 30.4 L g/dL
(33.0-37.0)
RDW 15.5 H %
(11.5-14.5)
MPV 11.0 H fL
(7.4-10.4)
Abs Immat Gran (auto) 0.1 H 10^3/uL
(0-0.05)
Immature Gran % 0.7 H %
(0-0.5)
Chloride 109 H mmol/L
(98-107)
BUN 20 H mg/dl
(7-17)
Creatinine 1.1 H mg/dL
(0.6-1.0)
Glucose 113 H mg/dl
(70-99)
Urine Bilirubin 1+ A
(Negative)
Leukocyte Esterase Rfl Trace A
(Negative)
Urine Bacteria (Reflex) Moderate A
(Negative)
10/29/24 21:59
10/29/24 21:59
Vital Signs
Initial and Last Documented VS:
Initial Vital Signs
Temp Pulse Resp BP Pulse Ox
37.0 C 74 20 153/83 97
10/29/24 21:47 10/29/24 21:47 10/29/24 21:47 10/29/24 21:47 10/29/24 21:47
Last Documented Vital Signs
Temp Pulse Resp BP Pulse Ox
37.0 C 66 18 168/98 98
10/29/24 21:47 10/30/24 01:03 10/30/24 01:03 10/30/24 01:03 10/30/24 01:03
<Eliseo Sepulveda MD - Last Filed: 10/30/24 02:00>
Orders/Labs/Results
Orders:
Orders
10/29/24 21:52
IV Insert/Care/Rem.- Treatment PRN
10/29/24 21:59
Complete Blood Count/With Diff Urgent
Comprehensive Metabolic Panel Urgent
Lipase Urgent
10/29/24 23:03
HYDROmorphone [Dilaudid] 0.5 mg IV NOW STA
10/29/24 23:04
0.9% Sodium Chloride 500 ml [Nss] 500 ml IV BOLUS
10/29/24 23:37
Urinalysis Reflex To Culture Urgent
Date Specimen was Collected: 10/29/24
Time Specimen was Collected: 21:52
Urine Microscopic Reflex Cult Urgent
Urine Culture Urgent
ESTHER Source: U
Specimen Description:
Date Specimen was Collected: 10/29/24
Time Specimen was Collected: 21:52
10/30/24 00:01
CT Abd/pel Without Iv Or Oral Urgent
Reason For Exam: R flank pain
Abnormal Lab Results
10/29/24 10/29/24
21:59 23:37
RBC 3.73 L 10^6/uL
(4.20-5.40)
Hgb 10.7 L g/dL
(12.0-16.0)
Hct 35.2 L %
(37.0-47.0)
MCHC 30.4 L g/dL
(33.0-37.0)
RDW 15.5 H %
(11.5-14.5)
MPV 11.0 H fL
(7.4-10.4)
Abs Immat Gran (auto) 0.1 H 10^3/uL
(0-0.05)
Immature Gran % 0.7 H %
(0-0.5)
Chloride 109 H mmol/L
(98-107)
BUN 20 H mg/dl
(7-17)
Creatinine 1.1 H mg/dL
(0.6-1.0)
Glucose 113 H mg/dl
(70-99)
Urine Bilirubin 1+ A
(Negative)
Leukocyte Esterase Rfl Trace A
(Negative)
Urine Bacteria (Reflex) Moderate A
(Negative)
10/29/24 21:59
10/29/24 21:59
Vital Signs
Initial and Last Documented VS:
Initial Vital Signs
Temp Pulse Resp BP Pulse Ox
37.0 C 74 20 153/83 97
10/29/24 21:47 10/29/24 21:47 10/29/24 21:47 10/29/24 21:47 10/29/24 21:47
Last Documented Vital Signs
Temp Pulse Resp BP Pulse Ox
37.0 C 66 18 168/98 98
10/29/24 21:47 10/30/24 01:03 10/30/24 01:03 10/30/24 01:03 10/30/24 01:03
<Eliseo Sepulveda MD - Last Filed: 10/30/24 02:00>
MDM/Problems Addressed
Differential Diagnosis Includes:
UTI/pyelonephritis, nephrolithiasis, muscle strain, enteritis, appendicitis less likely without abdominal tenderness
MDM/Problems Addressed:
64-year-old female presents for evaluation of right flank pain associate with nausea, vomiting, loose stools. Hypertensive otherwise normal vitals. Physical exam as above. Place an IV check labs including a CBC and a CMP. Check urinalysis.
Check CT abdomen pelvis. Provide fluids and pain control. Reassess after the above.
Labs reviewed: CBC shows stable anemia, CMP shows mild renal sufficiency stable. Urinalysis shows no blood, moderate bacteria but many squamous cells which suggest contamination; no significant pyuria to suggest UTI and she is not having dysuria,
hematuria, change in frequency, etc. Hold antibiotics for now. CT shows no acute pathology to account for symptoms. Suspect that she may have a mild enteritis with her vomiting and loose stools. She has not had additional vomiting here she says
her pain is well-controlled and she feels well enough to go home. Will trial p.o. and reassess�if taking p.o. without issue will discharge with instructions for bland diet, Zofran as needed and PCP follow-up.
Patient tolerating p.o., stable for discharge. She feels comfortable this plan. Spoke about return precautions, all questions answered.
Acute Exacerbation and/or Progression of Chronic Illness:
Acutely hypertensive with no signs or symptoms of hypertensive crisis no indication for emergent hypertensives
Acute Exacerbation and/or Progression of Chronic Illness: HTN
Blancalt;DERIC Ricci - Last Filed: 10/29/24 22:46>
*Critical Care Note
Total Time (30-74mins, 75-104mins- exclusive of procedures): Not Applicable
<Eliseo Sepulveda MD - Last Filed: 10/30/24 02:00>
*Radiology
Radiology exam reviewed: radiology read reviewed
*Pulse Oximetry
Patient hypoxic: no
*Critical Care Note
Total Time (30-74mins, 75-104mins- exclusive of procedures): Not Applicable
Data Reviewed
Review of Other/Old Records Reveals: Labs and Records
Source: patient and records
ED Attending Note
<DERIC Ricci - Last Filed: 10/29/24 22:46>
-
Portions of this chart may have been created with voice recognition software.� Occasional wrong word or��sound alike� substitutions may have occurred due to the inherent limitations of voice recognition software.
Discharge Plan
Departure
Patient Disposition: Home (Routine Discharge)
Date of Disposition: 10/30/24
Time of Disposition: 01:46
Patient with high blood pressure during this ER visit?: Yes
Discharge Problem:
Flank pain, Nausea & vomiting
Instructions: Flank Pain (DC), Nausea and Vomiting, Adult (DC)
Prescriptions:
New
ondansetron 4 mg tablet,disintegrating
4 mg PO TIDPRN PRN (Reason: nausea/vomiting) Qty: 14 0RF
No Action
levothyroxine 175 mcg Tablet
175 mcg PO DAILY AT 0700
ipratropium-albuterol 0.5 mg-3 mg(2.5 mg base)/3 mL Solution For Nebulization
3 ml INHALATION R Q6 PRN (Reason: sob/wheezing)
rosuvastatin 10 mg Tablet
10 mg PO HS
prednisone 1 mg Tablet
4 mg PO DAILY
pantoprazole 40 mg Tablet,Delayed Release (Dr/Ec)
40 mg PO BID Qty: 60 0RF
acetaminophen 325 mg Tablet
650 mg PO Q6H PRN (Reason: increased temp or mild pain)
magnesium hydroxide [Milk of Magnesia] 400 mg/5 mL Suspension
30 ml PO DAILY PRN (Reason: IF NO BM X 3 DYS)
insulin aspart U-100 100 unit/mL (3 mL) Insulin Pen
7 unit SC AC
Patient Comments:
with meals
insulin glargine 100 unit/mL (3 mL) Insulin Pen
25 unit SC HS
Xarelto 20 mg tablet
20 mg PO QPM
acetaminophen 325 mg Tablet
650 mg PO Q4HPRN PRN (Reason: mild pain or temp >/= 100.4 F) Qty: 0 0RF
gabapentin 100 mg capsule
100 mg PO HS
dicyclomine 10 mg capsule
10 mg PO AC
bisacodyl 10 mg Suppository
10 mg NE ONCE PRN (Reason: CONSTIPATION NOT RELEIVED BY MOM)
zinc oxide 10 % Cream
1 applic TOPICAL BID
guaifenesin [Siltussin SA] 100 mg/5 mL liquid
100 mg PO Q4HPRN PRN (Reason: cough)
hydromorphone 4 mg Tablet
4 mg PO Q4HPRN PRN (Reason: moderate to severe pain) Qty: 15 0RF
sucralfate [Carafate] 1 gram tablet
1 g PO QIDPRN PRN (Reason: ACID REFLUX) Qty: 60 0RF
furosemide [Lasix] 20 mg tablet
20 mg PO DAILY Qty: 10 0RF
Referrals:
UNKNOWN - PT DOES,NOT KNOW [Family Provider] -
Activity Restrictions/Additional Instructions:
Thank you for visiting the Emergency Department at [facility].
1. Please schedule a follow up appointment as directed. Call first thing tomorrow morning to make an appointment.
2. If indicated, please take your medications as instructed and indicated on discharge paperwork.
3. If any of your symptoms do not improve, or persist, or become more severe within 6-12 hours, please return to the emergency department for further care.
4. Please return to the emergency department if you develop a headache, neck pain/stiffness, fever greater than 100.4F, chest pain, shortness of breath, persistent nausea, vomiting, slurred speech, difficulty walking, numbness/tingling, weakness,
signs of infection or any other symptoms that are worrisome to you.
Please call [phone] if you have any questions.
Interventions
Interventions:
*Risk Screen - Suicide Last Done: 10/29/24 21:47
*General Assessment Last Done: 10/29/24 21:47
*Neglect/Abuse Screening Last Done: 10/29/24 21:47
ED- Fall Risk Assessment Last Done: 10/29/24 21:47
*ED COVID-19 Vaccine History Last Done: 10/29/24 21:47
NG-Fuaozy-Pbgmpohpnm Assessment Last Done: 10/29/24 23:50
ED-Female Genitourinary Assessment Last Done: 10/29/24 23:50
Discharge Date and Time
Print Language: YORUBA
[2024-10-29 23:32] VITALS: BMI 36.1
[2024-10-29 23:38] VITALS: BP 157/81
[2024-10-29] MEDS: NSS 500 IV (23:41)
[2024-10-29] MEDS: DILAUDID 0.5 MG IV (23:46)
[2024-10-30] VITALS: BP 153/86
[2024-10-30 00:22] LABS: Urine Albumin Trace (Neg - Trace); Urine Bilirubin 1+ (Negative); Urine Character Slightly Cloudy (Clear); Urine Color Yellow; Urine Glucose Negative (Negative); Urine Ketone Negative (Negative); Urine Leukocyte Trace (Negative); Urine Nitrite Negative (Negative); Urine Occult Blood Negative (Negative); Urine Urobilinogen Negative (Neg - 1+)
[2024-10-30 01:03] VITALS: BP 168/98
[2024-10-30 01:04] VITALS: BP 168/98
[2024-10-30 01:20] LABS: Urine Amorphous Seen; Urine Bacteria Moderate (Negative); Urine Mucus Few; Urine Red Blood Cell 0-2 /HPF (0-2); Urine Squamous Cell >30 /LPF (Few)
== END 2024-10-30 02:50 | disposition home or self-care (01) ==
LOC: EMR 21:42
PROVIDERS: Emergency Medicine; EMERGENCY PHYSICIAN Emergency Medicine
DX: R10.9 Unspecified abdominal pain (principal); R11.2 Nausea with vomiting, unspecified; D64.9 Anemia, unspecified; K21.9 Gastro-esophageal reflux disease without esophagitis; I10 Essential (primary) hypertension; E03.9 Hypothyroidism, unspecified; E11.9 Type 2 diabetes mellitus without complications; E78.00 Pure hypercholesterolemia, unspecified; I69.954 Hemiplegia and hemiparesis following unspecified cerebrovascular disease affecting left non-dominant side; Z86.718 Personal history of other venous thrombosis and embolism; Z87.891 Personal history of nicotine dependence; Z90.49 Acquired absence of other specified parts of digestive tract; Z90.710 Acquired absence of both cervix and uterus; Z98.84 Bariatric surgery status
CPT/HCPCS: 96374; 96361; 99284; 74176; 80053; 81003; 81015; 83690; 85025; 87086

== ENCOUNTER 2024-11-04 10:33 | Emergency (ER) | payer OTHER, SELFPAY ==
--- NOTE | 2024-11-04 10:46 | ED.GENMED ---
ED Provider Triage
<Juan May PA-C - Last Filed: 11/04/24 10:47>
-
Patient seen by provider in Triage?: Seen in Triage
Attestation: A medical screening examination has been initiated by a qualified medical provider. Based on the assessment performed at this time, it has been determined that an emergent medical condition may exist and the patient has been informed
that further medical evaluation and possible additional diagnostic testing may be needed.
HPI: 64-year-old female presented to the ER for a multitude of complaints including continued right-sided flank pain for which she was seen and evaluated for 1 week ago. No change in the symptoms today. Secondary complaint of sensation of sore
throat/swollen throat and difficulty tolerating her oral pills today. Patient also stating it feels as if her asthma is flaring up. Patient is in no acute distress, hemodynamically stable, no signs of anaphylaxis or airway compromise. Patient is
otherwise stable for the waiting room.
GENERAL: Alert , in no apparent distress
EYE: No visual abnormalities.
NECK: Trachea midline
ENT: No visible abnormalities.
LUNGS: No acute respiratory distress
NEUROLOGICAL: Alert and oriented
SKIN: Skin intact. No visible changes.
MUSCULOSKELETAL: Moving extremities normally
PSYCH: Normal and appropriate interaction.
This is a medical evaluation conducted in person to initiate diagnostic evaluation and provide initial therapeutics. Please see further documentation by the treating clinician.
History of Present Illness
<Juan May PA-C - Last Filed: 11/04/24 10:47>
General
Chief Complaint: Back Pain
Time Seen by Provider: 11/04/24 11:36
<Eliseo Sepulveda MD - Last Filed: 11/04/24 15:12>
General
Source: patient and records
Exam Limitations: none
Nursing documentation reviewed up to this point in time: agreed with
History of Present Illness
History of Present Illness:
64-year-old female with past medical history as noted who presents to the emergency department for evaluation of right sided back pain/flank pain; she has also been dealing with sore throat and cough recently. Patient was notably here in this
emergency room 10/30/2024 and seen by gopal presented with some right flank/back pain at that time. She had lab work, urine studies and CT�there was a question of some enteritis and she had been having some loose stools but no other acute
pathology noted. She ultimately was discharged after receiving a dose of pain medicine she felt much better. She says that she had no pain when she left the hospital at that point and she was doing well without any pain until today when she says
the pain returned. She describes an aching pain in the right flank/low back that does not radiate. It is worse with certain movements. No relieving factors noted (although she says she did not take any pain medicine prior to coming to the
hospital). She is also complaining of some coughing productive of yellow sputum. She states she has had a sore throat and runny nose and congestion. Mild shortness of breath. She was seen at urgent care for this recently and was started on
Medrol Dosepak and Augmentin but this has not helped.
Past History
<Juan May PA-C - Last Filed: 11/04/24 10:47>
Past History
ED Past Medical History: Asthma, COPD (?), CVA (Left sided weakness), GERD, HTN, Hypercholesterolemia, IDDM, Hypothyroidism, Psychiatric (Anxiety, PTSD) and Other (Cervical fracture, Headache, Endocarditis, Renal calculus, Cellulitis, PNA, Anemia,
DVT, )
ED Past Surgical History: Cholecystectomy, Gynecological (Hysterectomy), Urological (Bladder lift) and Other (Gastric bypass, Tummy tuck, IVC filter)
Social History
Tobacco: Former smoker
Alcohol: None
Drug: None
Personal:
Living: with family
Employment: Employed
Family History
Family History: Hypertension
Review of Systems
<Eliseo Sepulveda MD - Last Filed: 11/04/24 15:12>
Review of Systems
All Other Systems: ROS reviewed and negative except as documented in HPI and ROS
Constitutional: Denies fever
EENT: Reports sore throat and runny nose
Respiratory: Reports cough and trouble breathing
Cardiac: Denies chest pain
ABD/GI: Denies abdominal pain, nausea, vomiting or diarrhea
: Reports flank pain; Denies dysuria or frequency
Musculoskeletal: Reports back pain; Denies neck pain
Neurological: Denies headache
Phy Exam
<Eliseo Sepulveda MD - Last Filed: 11/04/24 15:12>
Physical Exam
Physical Exam:
General: Awake, alert, oriented x3; no acute distress
Head: Normocephalic, atraumatic
Eyes: Conjunctiva normal, sclera anicteric
Throat: Airway intact, handling secretions, some slight erythema in the posterior oropharynx but midline uvula no edema
Ears: TMs clear bilaterally
Neck: Trachea midline, supple without meningismus
Lungs: Occasional scattered wheeze, normal respiratory rate, normal pulse ox on room air
Heart: Regular rate and rhythm, no murmurs, gallops, or rubs appreciated
Abd: Soft, non distended, nontender
Back: Tender to palpation right lumbar region no midline tenderness, no CVA tenderness
Neuro: No gross deficits, ambulatory, motor and sensory tact all extremities
Extremities: Warm and well-perfused
Scores
<Eliseo Sepulveda MD - Last Filed: 11/04/24 15:12>
Heart Failure Risk
Heart Failure Risk Score: Not Applicable
Heart Score for Chest Pain Patients
STEMI patient?: Not applicable
Withdrawal Assessment of Alcohol
Withdrawal Assessment Completed?: Not applicable
Course
<Juan May PA-C - Last Filed: 11/04/24 10:47>
Orders/Labs/Results
Orders:
Orders
11/04/24 13:54
Diazepam [Valium] 2 mg PO NOW STA
11/04/24 14:12
CR Chest - 2 Views Urgent
Comment:
Reason For Exam: cough
11/04/24 14:33
LevoFLOXacin [Levaquin] 750 mg PO NOW STA
Vital Signs
Initial and Last Documented VS:
Initial Vital Signs
Temp Pulse Resp BP Pulse Ox
36.9 C 76 18 162/86 97
11/04/24 10:47 11/04/24 10:47 11/04/24 10:47 11/04/24 10:47 11/04/24 10:47
Last Documented Vital Signs
Temp Pulse Resp BP Pulse Ox
36.9 C 96 16 139/85 96
11/04/24 10:47 11/04/24 12:50 11/04/24 12:50 11/04/24 12:50 11/04/24 12:50
<Eliseo Sepulveda MD - Last Filed: 11/04/24 15:12>
Orders/Labs/Results
Orders:
Orders
11/04/24 13:54
Diazepam [Valium] 2 mg PO NOW STA
11/04/24 14:12
CR Chest - 2 Views Urgent
Comment:
Reason For Exam: cough
11/04/24 14:33
LevoFLOXacin [Levaquin] 750 mg PO NOW STA
Vital Signs
Initial and Last Documented VS:
Initial Vital Signs
Temp Pulse Resp BP Pulse Ox
36.9 C 76 18 162/86 97
11/04/24 10:47 11/04/24 10:47 11/04/24 10:47 11/04/24 10:47 11/04/24 10:47
Last Documented Vital Signs
Temp Pulse Resp BP Pulse Ox
36.9 C 96 16 139/85 96
11/04/24 10:47 11/04/24 12:50 11/04/24 12:50 11/04/24 12:50 11/04/24 12:50
<Eliseo Sepulveda MD - Last Filed: 11/04/24 15:12>
MDM/Problems Addressed
Differential Diagnosis Includes:
Back pain, musculoskeletal pain, lower lobe pneumonia, low suspicion for intra-abdominal pathology with recently negative CT and benign abdomen
MDM/Problems Addressed:
64-year-old female presents for evaluation of flank/back pain identical to symptoms for which she was recently evaluated�they had resolved for a few days and then came back today. She is also complaining of cough and URI symptoms. Has been on
Augmentin and Medrol pack for the past day or 2 but not improving. Hypertensive otherwise normal vitals. Physical exam as above. Regarding her flank pain�very low suspicion that this is an emergent process�it is reproducible to the touch and
worse with movement. She had a recently negative CT and she has a benign abdomen, in my judgment no indication for repeating imaging at this point in time. Will treat with some Valium and reassess. Regarding cough/URI symptoms�symptoms seem
viral. Will check chest x-ray to rule out lower lobe pneumonia.
Chest x-ray reviewed by jesse clear pneumonia�possibly some slight atelectasis versus pneumonia in the right lower lobe but no convincing lobar infiltrate. Given that she has had a change in sputum I do think antibiotic coverage is reasonable, can
switch to Levaquin from Augmentin. Continue Medrol Dosepak. More likely it is a viral process. She did have some improvement with Valium here. She already follows with pain management for chronic back and neck issues�at this point I think that
this is likely musculoskeletal pain and that there is no clear emergent process at play. I had a long discussion with the patient she feels very comfortable following up with pain management doctor as an outpatient; infection is requesting this
prior to further treatment. I think this is a reasonable plan. Will discharge at this point, spoke about return precautions all questions answered.
Chronic conditions affecting care:
Asthma/COPD
Acute Exacerbation and/or Progression of Chronic Illness:
Acutely hypertensive resolved without intervention continue to monitor but no emergent antihypertensives indicated at present
Acute Exacerbation and/or Progression of Chronic Illness: HTN
<Eliseo Sepulveda MD - Last Filed: 11/04/24 15:12>
*Radiology
Radiology exam reviewed: preliminary read by ED provider
*Pulse Oximetry
Patient hypoxic: no
*Critical Care Note
Total Time (30-74mins, 75-104mins- exclusive of procedures): Not Applicable
Data Reviewed
Review of Other/Old Records Reveals: Labs, Records and Radiology Studies
Source: patient and records
Further Testing Considered But Not Given:
Considered a second CT scan as above
ED Attending Note
<Juan May PA-C - Last Filed: 11/04/24 10:47>
-
Portions of this chart may have been created with voice recognition software.� Occasional wrong word or��sound alike� substitutions may have occurred due to the inherent limitations of voice recognition software.
Discharge Plan
Departure
Patient Disposition: Home (Routine Discharge)
Date of Disposition: 11/04/24
Time of Disposition: 14:34
Patient with high blood pressure during this ER visit?: Yes
Discharge Problem:
Back pain, Pneumonia
Instructions: Pneumonia in adults, Low Back Pain (DC)
Prescriptions:
New
levofloxacin 750 mg tablet
750 mg PO DAILY 6 Days Qty: 6 0RF
No Action
levothyroxine 175 mcg Tablet
175 mcg PO DAILY AT 0700
ipratropium-albuterol 0.5 mg-3 mg(2.5 mg base)/3 mL Solution For Nebulization
3 ml INHALATION R Q6 PRN (Reason: sob/wheezing)
rosuvastatin 10 mg Tablet
10 mg PO HS
prednisone 1 mg Tablet
4 mg PO DAILY
pantoprazole 40 mg Tablet,Delayed Release (Dr/Ec)
40 mg PO BID Qty: 60 0RF
acetaminophen 325 mg Tablet
650 mg PO Q6H PRN (Reason: increased temp or mild pain)
magnesium hydroxide [Milk of Magnesia] 400 mg/5 mL Suspension
30 ml PO DAILY PRN (Reason: IF NO BM X 3 DYS)
insulin aspart U-100 100 unit/mL (3 mL) Insulin Pen
7 unit SC AC
Patient Comments:
with meals
insulin glargine 100 unit/mL (3 mL) Insulin Pen
25 unit SC HS
Xarelto 20 mg tablet
20 mg PO QPM
acetaminophen 325 mg Tablet
650 mg PO Q4HPRN PRN (Reason: mild pain or temp >/= 100.4 F) Qty: 0 0RF
gabapentin 100 mg capsule
100 mg PO HS
dicyclomine 10 mg capsule
10 mg PO AC
bisacodyl 10 mg Suppository
10 mg DE ONCE PRN (Reason: CONSTIPATION NOT RELEIVED BY MOM)
zinc oxide 10 % Cream
1 applic TOPICAL BID
guaifenesin [Siltussin SA] 100 mg/5 mL liquid
100 mg PO Q4HPRN PRN (Reason: cough)
hydromorphone 4 mg Tablet
4 mg PO Q4HPRN PRN (Reason: moderate to severe pain) Qty: 15 0RF
sucralfate [Carafate] 1 gram tablet
1 g PO QIDPRN PRN (Reason: ACID REFLUX) Qty: 60 0RF
furosemide [Lasix] 20 mg tablet
20 mg PO DAILY Qty: 10 0RF
ondansetron 4 mg tablet,disintegrating
4 mg PO TIDPRN PRN (Reason: nausea/vomiting) Qty: 14 0RF
Referrals:
Patrick Slaughter MD [Family Provider] - Follow up in 2-3 days
Activity Restrictions/Additional Instructions:
Thank you for visiting the Emergency Department at [facility].
1. Please schedule a follow up appointment as directed. Call first thing tomorrow morning to make an appointment.
2. If indicated, please take your medications as instructed and indicated on discharge paperwork.
3. If any of your symptoms do not improve, or persist, or become more severe within 6-12 hours, please return to the emergency department for further care.
4. Please return to the emergency department if you develop a headache, neck pain/stiffness, fever greater than 100.4F, chest pain, shortness of breath, persistent nausea, vomiting, slurred speech, difficulty walking, numbness/tingling, weakness,
signs of infection or any other symptoms that are worrisome to you.
Please call [phone] if you have any questions.
Interventions
Interventions:
*Risk Screen - Suicide Last Done: 11/04/24 10:47
*General Assessment Last Done: 11/04/24 10:47
*Neglect/Abuse Screening Last Done: 11/04/24 10:47
ED- Fall Risk Assessment Last Done: 11/04/24 11:54
*ED COVID-19 Vaccine History Last Done: 11/04/24 10:47
*Nursing Disposition Last Done: 11/04/24 14:41
ED-Musculoskeletal Assessment Last Done: 11/04/24 11:54
Discharge Date and Time
Discharge Date/Time: 11/04/24 14:42
Print Language: PERSIAN
[2024-11-04 10:47] VITALS: BP 162/86
[2024-11-04 11:43] VITALS: BP 142/69
[2024-11-04 11:44] VITALS: BMI 31.8
--- NOTE | 2024-11-04 11:52 | EDRN ---
the pt pressed the call hernandez and this RN entered the pts room, the pt stated, 'I need to be seen now and i need pain medication preferably dilaudid', this RN introduced this RN's self and notified the pt that a provider would be in to see her, this
RN placed the pt on the BP cuff and Sp02 monitor, VS WNL, the pt is not tachycardic, BP 142/69 (91), the pt stated to this RN, 'I am in severe pain a 15/10 and i need pain medication i need them to figure out what is going on with me now', this RN
notified the pt again that a provider would be in to see her, the pt is resting in stretcher in the lowest position, side rails up x1, HOB elevated, no s/s of distress noted, will continue to monitor the pt closely
[2024-11-04 12:50] VITALS: BP 139/85
--- NOTE | 2024-11-04 12:51 | EDRN ---
the pt pressed the call hernandez and this RN entered the pts room, the pt stated to this RN, 'Am i like gonna see a doctor i shouldn't have to wait this long to be seen, i want pain medication', this RN apologized for the pts wait and notified her that
the provider would come to the pts bedside to see her, there are no s/s of distress, VS WNL, the pt is resting in stretcher in the lowest position, side rails up x1, HOB elevated, call hernandez within reach, will continue to monitor the pt closely
--- NOTE | 2024-11-04 13:11 | EDRN ---
currently still awaiting for the provider to come to the pts bedside
--- NOTE | 2024-11-04 13:24 | EDRN ---
Dr. Sepulveda currently at the pts bedside
[2024-11-04] MEDS: VALIUM 2 MG PO (13:59)
--- NOTE | 2024-11-04 14:00 | EDRN ---
this RN entered the pts room to administer PO Valium, the pt was found sitting on the side of the stretcher on her phone, the pt was able to take oral valium with water, the pt then stated to this RN, 'I need the doctor to come back in here i need
him to look at my ears and my throat because this morning my throat was sore', this RN notified Dr. Sepulveda, the pt is sitting on the side of the stretcher in the lowest position, side rails up x1, HOB slightly elevated, call hernandez within reach, the pt
took herself off of the monitor, will continue to monitor the pt closely
[2024-11-04] MEDS: LEVAQUIN 750 MG PO (14:38)
== END 2024-11-04 14:42 | disposition home or self-care (01) ==
LOC: EMR 10:33
PROVIDERS: EMERGENCY PHYSICIAN Emergency Medicine; FAMILY PHYSICIAN Internal Medicine
DX: J18.9 Pneumonia, unspecified organism (principal); J44.0 Chronic obstructive pulmonary disease with (acute) lower respiratory infection; M54.50 Low back pain, unspecified; E03.9 Hypothyroidism, unspecified; E11.9 Type 2 diabetes mellitus without complications; E78.00 Pure hypercholesterolemia, unspecified; I10 Essential (primary) hypertension; K21.9 Gastro-esophageal reflux disease without esophagitis; Z79.4 Long term (current) use of insulin; Z86.718 Personal history of other venous thrombosis and embolism; Z86.73 Personal history of transient ischemic attack (TIA), and cerebral infarction without residual deficits; Z87.891 Personal history of nicotine dependence; Z98.84 Bariatric surgery status; Z90.710 Acquired absence of both cervix and uterus; Z90.49 Acquired absence of other specified parts of digestive tract
CPT/HCPCS: 99283; 71046

== ENCOUNTER 2025-02-05 22:24 | Inpatient (IN) | payer OTHER, SELFPAY ==
[2025-02-05] VITALS (7 sets, daily range): BP systolic 105–138; BP diastolic 65–101; BMI 38.3; BMI 37.4
[2025-02-05 16:31] LABS: Hematocrit 28.2 % (37.0-47.0); Hemoglobin 8.3 g/dL (12.0-16.0); Mean Corp Hgb Conc. 29.4 g/dL (33.0-37.0); Mean Corpuscular Hgb 29.2 pg (27.0-31.0); Mean Corpuscular Volume 99.3 fL (81.0-99.0); Mean Platelet Volume 10.4 fL (7.4-10.4); Platelet Count 163 10^3/uL (130-400); Red Blood Cell Count 2.84 10^6/uL (4.20-5.40); Red Cell Dist. Width 18.4 % (11.5-14.5); White Blood Cell Count 11.5 10^3/uL (4.8-10.8)
[2025-02-05 16:34] LABS: APTT 31.1 Sec (23.4-35.0); PT 22.8 Sec (11.4-14.6)
[2025-02-05 16:39] LABS: % Basophils 0.2 % (0-2); % Eosinophils 0.1 % (0-6); % Immature Granulocytes 6.5 % (0-0.5); % Lymphocytes 24.1 % (20.5-51.1); % Monocytes 5.1 % (1.7-9.3); Absolute Immature Granulocytes 0.8 10^3/uL (0-0.05); Absolute Lymphocytes 2.8 10^3/uL (1.2-3.4); Absolute Monocytes 0.6 10^3/uL (0.1-0.6); Absolute Neutrophils 7.4 10^3/uL (1.4-6.5); Nucleated Red Blood Cells % 0.9 %
[2025-02-05 16:42] LABS: ALT (SGPT) 24 U/L (0-35); AST (SGOT) 18 U/L (14-36); Albumin 3.6 g/dl (3.5-5.0); Alkaline Phosphatase 55 U/L (38-126); Blood Urea Nitrogen 41 mg/dl (7-17); Calcium 8.6 mg/dl (8.4-10.2); Carbon Dioxide 23 mmol/L (22-30); Chloride 105 mmol/L (98-107); Glucose 243 mg/dl (70-99); Potassium 5.2 mmol/L (3.5-5.1); Sodium 136 mmol/L (135-145); Total Bilirubin 0.8 mg/dl (0.2-1.3); eGFR 38.91
--- NOTE | 2025-02-05 18:25 | ED.GENMED ---
History of Present Illness
General
Chief Complaint: Rectal Bleeding
Source: patient
Exam Limitations: none
Time Seen by Provider: 02/05/25 18:06
History of Present Illness
History of Present Illness:
64-year-old insulin-dependent diabetic with history of A-fib on Xarelto presents with several days worth of diarrhea sometimes bloody. She did also notes significant abdominal cramping. She states she has not had bloody bowel movements in a day
but the diarrhea persist. She was nauseous at the onset of her illness but has not vomited. No measurable fever. There is no chills however. No urinary symptoms. No other complaints at this time
Past History
Past History
ED Past Medical History: Asthma, COPD (?), CVA (Left sided weakness), GERD, HTN, Hypercholesterolemia, IDDM, Hypothyroidism, Psychiatric (Anxiety, PTSD) and Other (Cervical fracture, Headache, Endocarditis, Renal calculus, Cellulitis, PNA, Anemia,
DVT, )
ED Past Surgical History: Cholecystectomy, Gynecological (Hysterectomy), Urological (Bladder lift) and Other (Gastric bypass, Tummy tuck, IVC filter)
Social History
Tobacco: Former smoker
Alcohol: None
Drug: None
Personal:
Living: with family
Employment: Employed
Family History
Family History: Hypertension
Phy Exam
Physical Exam
Physical Exam:
General: Well-appearing female no acute respiratory distress HEENT: Normocephalic atraumatic
Heart: Regular rate and rhythm no murmurs
Lungs: Clear no wheeze
abdomen soft tender to palpation to the lower abdomen no guarding rebound normal bowel sounds nondistended
Extremities: No cyanosis or edema
Course
Orders/Labs/Results
Orders:
Orders
02/05/25 16:12
Type And Crossmatch [Type+Screen] Urgent
Complete Blood Count/With Diff Urgent
Comprehensive Metabolic Panel Urgent
PTT Urgent
Prothrombin Time Urgent
02/05/25 18:24
CT Abd/pelvis W Iv Cont Urgent
Comment:
Reason For Exam: abdominal pain, bloody diarrhea
Norovirus by PCR Urgent
ESTHER Source: Feces/Stool
Specimen Description:
STOOL [C difficile Antigen & Toxins] Urgent
ESTHER Source: Feces/Stool
Specimen Description:
Stool Culture Urgent
ESTHER Source: Feces/Stool
Specimen Description:
0.9% Sodium Chloride 1000 ml [Nss] 1,000 ml IV BOLUS
02/05/25 18:45
Diphenhydramine [Benadryl] 50 mg IV NOW STA
Hydrocortisone Sod Succinate [Solu-Cortef] 200 mg IV NOW STA
02/05/25 20:51
Ipratropium/Albuterol Sulfate [Duoneb] 3 ml INH R NOW STA
02/05/25 21:32
Lactic Acid Urgent
Zosyn 3.375 grams IVPB NOW Piperacillin/Tazo 3.375 Gram [Zosyn] 3.375 gram in 50 ml IV NOW
Abnormal Lab Results
02/05/25
16:12
WBC 11.5 H 10^3/uL
(4.8-10.8)
RBC 2.84 L 10^6/uL
(4.20-5.40)
Hgb 8.3 L g/dL
(12.0-16.0)
Hct 28.2 L %
(37.0-47.0)
MCV 99.3 H fL
(81.0-99.0)
MCHC 29.4 L g/dL
(33.0-37.0)
RDW 18.4 H %
(11.5-14.5)
Abs Immat Gran (auto) 0.8 H 10^3/uL
(0-0.05)
Absolute Neuts (auto) 7.4 H 10^3/uL
(1.4-6.5)
Immature Gran % 6.5 H %
(0-0.5)
PT 22.8 H Sec
(11.4-14.6)
Potassium 5.2 H mmol/L
(3.5-5.1)
BUN 41 H mg/dl
(7-17)
Creatinine 1.5 H mg/dL
(0.6-1.0)
Glucose 243 H mg/dl
(70-99)
Total Protein 6.0 L g/dl
(6.3-8.2)
02/05/25 16:12
02/05/25 16:12
Vital Signs
Initial and Last Documented VS:
Initial Vital Signs
Temp Pulse Resp BP Pulse Ox
98.2 F 82 20 136/76 94
02/05/25 16:02 02/05/25 16:02 02/05/25 16:02 02/05/25 16:02 02/05/25 16:02
Last Documented Vital Signs
Temp Pulse Resp BP Pulse Ox
98.2 F 75 14 123/76 92
02/05/25 16:02 02/05/25 21:00 02/05/25 21:00 02/05/25 21:00 02/05/25 21:10
MDM/Problems Addressed
Differential Diagnosis Includes:
Abdominal pain with diarrhea sometimes bloody. Consider colitis versus other viral infection. Will check for anemia or electrolyte abnormality
Will hydrate gently initially. Stool studies pending. CT pending given the tenderness on exam I anticipate patient will require admission for rectal bleeding. Hemoglobin is 8.3 and she is on Xarelto. Will obtain blood consent
*Critical Care Note
Total Time (30-74mins, 75-104mins- exclusive of procedures): Not Applicable
Update Note
Update Note:
CT consistent with colitis. Blood consent obtained. Zosyn ordered for colitis. Lactic acid added patient now resting comfortably. Discussed with emergency room attending. Zosyn ordered will admit to hospital for acute on chronic anemia in the
setting of bloody diarrhea and colitis and anticoagulated patient.
ED Attending Note
-
Portions of this chart may have been created with voice recognition software.� Occasional wrong word or��sound alike� substitutions may have occurred due to the inherent limitations of voice recognition software.
Discharge Plan
Departure
Patient Disposition: Admit
Date of Disposition: 02/05/25
Time of Disposition: 21:36
Presentation/result/management discussed w/ accepting MD/DO: Hospitalist
Discharge Problem:
Colitis, Anemia
Prescriptions:
No Action
levothyroxine 175 mcg Tablet
175 mcg PO DAILY AT 0700
ipratropium-albuterol 0.5 mg-3 mg(2.5 mg base)/3 mL Solution For Nebulization
3 ml INHALATION R Q6 PRN (Reason: sob/wheezing)
rosuvastatin 10 mg Tablet
10 mg PO HS
prednisone 1 mg Tablet
4 mg PO DAILY
pantoprazole 40 mg Tablet,Delayed Release (Dr/Ec)
40 mg PO BID Qty: 60 0RF
acetaminophen 325 mg Tablet
650 mg PO Q6H PRN (Reason: increased temp or mild pain)
magnesium hydroxide [Milk of Magnesia] 400 mg/5 mL Suspension
30 ml PO DAILY PRN (Reason: IF NO BM X 3 DYS)
insulin aspart U-100 100 unit/mL (3 mL) Insulin Pen
7 unit SC AC
Patient Comments:
with meals
insulin glargine 100 unit/mL (3 mL) Insulin Pen
25 unit SC HS
Xarelto 20 mg tablet
20 mg PO QPM
acetaminophen 325 mg Tablet
650 mg PO Q4HPRN PRN (Reason: mild pain or temp >/= 100.4 F) Qty: 0 0RF
gabapentin 100 mg capsule
100 mg PO HS
dicyclomine 10 mg capsule
10 mg PO AC
bisacodyl 10 mg Suppository
10 mg MI ONCE PRN (Reason: CONSTIPATION NOT RELEIVED BY MOM)
zinc oxide 10 % Cream
1 applic TOPICAL BID
guaifenesin [Siltussin SA] 100 mg/5 mL liquid
100 mg PO Q4HPRN PRN (Reason: cough)
hydromorphone 4 mg Tablet
4 mg PO Q4HPRN PRN (Reason: moderate to severe pain) Qty: 15 0RF
sucralfate [Carafate] 1 gram tablet
1 g PO QIDPRN PRN (Reason: ACID REFLUX) Qty: 60 0RF
furosemide [Lasix] 20 mg tablet
20 mg PO DAILY Qty: 10 0RF
ondansetron 4 mg tablet,disintegrating
4 mg PO TIDPRN PRN (Reason: nausea/vomiting) Qty: 14 0RF
levofloxacin 750 mg tablet
750 mg PO DAILY 6 Days Qty: 6 0RF
Referrals:
[facility], [Other]
Patrick Slaughter MD [Family Provider] -
Interventions
Interventions:
*Risk Screen - Suicide Last Done: 02/05/25 17:53
*General Assessment Last Done: 02/05/25 17:53
*Neglect/Abuse Screening Last Done: 02/05/25 17:53
*ED- Fall Risk Assessment Last Done: 02/05/25 17:53
*ED COVID-19 Vaccine History Last Done: 02/05/25 17:53
YN-Qgrios-Govotpycre Assessment Last Done: 02/05/25 17:53
ED- Cardiac Assessment Last Done: 02/05/25 17:53
ED- Pulmonary Assessment Last Done: 02/05/25 17:53
Discharge Date and Time
Print Language: AZERI
[2025-02-05] MEDS: NSS 1000 IV ×2 (18:32→23:16)
[2025-02-05] MEDS: BENADRYL 50 MG IV (18:50)
[2025-02-05] MEDS: SOLU-CORTEF 200 MG IV (18:50)
[2025-02-05] MEDS: DUONEB 3 ML INH (20:55)
[2025-02-05] MEDS: ZOSYN 50 IV (21:38)
[2025-02-05 21:58] LABS: Lactic Acid 2.1 mmol/L (0.7-2.0)
--- NOTE | 2025-02-05 22:01 | HPS.HSE ---
Family Physician
-
Family Physician: Patrick Slaughter
Chief Complaint
-
bloody diarrhea
History of Present Illness
64-year-old female past medical history of possible atrial fibrillation on Xarelto, prior DVT, CVA, hypertension, diabetes, anxiety, PTSD, endocarditis, chronic pain syndrome, hyperlipidemia, COPD/asthma on 2 L baseline usually at night, CKD, GERD,
hypothyroidism, cervical fracture, renal calculi, anemia, presenting with bloody diarrhea for the past 2-3 days. She states the first day she had a lot of bloody diarrhea and this has improved. She denied any bloody stool today. She had some
nausea and vomiting without blood but this is also improved. She did have some crackers today. Denies fevers but feels cold. She has pain across her lower abdomen.
She denies eating any restaurant food or food from outside recent travel. Denies sick contacts.
She did have some shortness of breath today which is normal for her sometimes. Did have some chest pain earlier which has resolved.
She denies smoking or alcohol use.
Medical History
Past Medical History
Past Medical History: Reports Other (possible atrial fibrillation on Xarelto, prior DVT, CVA, hypertension, diabetes, anxiety, PTSD, endocarditis, chronic pain syndrome, hyperlipidemia, COPD/asthma on 2 L baseline usually at night, CKD, GERD,
hypothyroidism, cervical fracture, renal calculi, anemia,)
Past Surgical History: Reports None
Social History
Tobacco: Non-smoker
Alcohol: None
Drug: None
Family History
Family History: Not pertinent
Allergies / Home Medications
Allergies reflects when Allergies were last updated in [facility].
Home Medications with original date entered in [facility]
Allergy/Medication List:
Allergies
Allergy/AdvReac Type Severity Reaction Status Date / Time
aspirin Allergy throat Verified 02/05/25 18:48
closes
codeine Allergy throat Verified 02/05/25 18:48
closes
heparin Allergy SEE BELOW Verified 02/05/25 18:48
hydrocodone Allergy throat Verified 02/05/25 18:48
closes
hydrocodone bitartrate Allergy Anaphylaxis Verified 02/05/25 18:48
[From Vicodin]
ibuprofen [Ibuprofen] Allergy Anaphylaxis Verified 02/05/25 18:48
iodine Allergy throat Verified 02/05/25 18:48
closes
ketorolac tromethamine Allergy Itching Verified 02/05/25 18:48
[From Toradol]
latex [Latex] Allergy Rash Verified 02/05/25 18:48
morphine [Morphine] Allergy low blood Verified 02/05/25 18:48
pressure
nitrofurantoin Allergy THROAT Verified 02/05/25 18:48
macrocrystalline CLOSES
[From Macrodantin]
oxycodone Allergy throat Verified 02/05/25 18:48
closes
propoxyphene Allergy throat Verified 02/05/25 18:48
closes
Home Medications
ipratropium 0.5 mg-albuterol 3 mg (2.5 mg base)/3 mL nebulization soln 3 ml inhalation R Q6 PRN sob/wheezing 08/11/22
levothyroxine 175 mcg tablet 175 mcg PO DAILY AT 0700 Thyroid 08/11/22
rosuvastatin 10 mg tablet 10 mg PO HS High cholesterol 08/11/22
prednisone 1 mg tablet 4 mg PO DAILY Anti-Inflammatory 04/30/23
pantoprazole 40 mg tablet,delayed release 40 mg PO BID Gastrointestinal issue #60 tabs 05/13/23
acetaminophen 325 mg tablet 650 mg PO Q6H PRN increased temp or mild pain 05/28/23
insulin aspart U-100 100 unit/mL (3 mL) subcutaneous pen 7 unit SC AC Diabetes 05/28/23
insulin glargine 100 unit/mL (3 mL) subcutaneous pen 25 unit SC HS Diabetes 05/28/23
magnesium hydroxide 400 mg/5 mL oral suspension (Milk of Magnesia) 30 ml PO DAILY PRN IF NO BM X 3 DYS 05/28/23
rivaroxaban 20 mg tablet (Xarelto) 20 mg PO QPM Blood Clot Prevention/Tx 05/28/23
acetaminophen 325 mg tablet 650 mg (2 x 325 mg) PO Q4HPRN PRN mild pain or temp >/= 100.4 F #0 tabs 06/04/23
dicyclomine 10 mg capsule 10 mg PO AC IRRITABLE BOWEL SYNDROME 06/07/23
gabapentin 100 mg capsule 100 mg PO HS NEUROPATHY 06/07/23
bisacodyl 10 mg rectal suppository 10 mg WI ONCE PRN CONSTIPATION NOT RELEIVED BY MOM 06/09/23
guaifenesin 100 mg/5 mL oral liquid (Siltussin SA) 100 mg PO Q4HPRN PRN cough 06/09/23
zinc oxide 10 % topical cream 1 applic topical BID REDNESS 06/09/23
hydromorphone 4 mg tablet 4 mg PO Q4HPRN PRN moderate to severe pain #15 tabs 06/16/23
sucralfate 1 gram tablet (Carafate) 1 g PO QIDPRN PRN ACID REFLUX #60 tabs 05/13/24
furosemide 20 mg tablet (Lasix) 20 mg PO DAILY #10 tabs 09/26/24
ondansetron 4 mg disintegrating tablet 4 mg PO TIDPRN PRN nausea/vomiting #14 tabs 10/30/24
levofloxacin 750 mg tablet 750 mg PO DAILY 6 days #6 tabs 11/04/24
Review of Systems
-
History Source: Patient
A 12 point ROS was completed and negative except as noted: Yes
Constitutional: Reports No Symptoms
EENT: Reports No Symptoms
Respiratory: Reports No Symptoms
Cardiac: Reports No Symptoms
Abdomen/GI: Reports See HPI
: Reports No Symptoms
Musculoskeletal: Reports No Symptoms
Skin: Reports No Symptoms
Neurological: Reports No Symptoms
Endocrine: Reports No Symptoms
Hematologic/Lymphatic: Reports No Symptoms
Psych: Reports No Symptoms
Physical Exam
Vital Signs
Vital Signs
Temp Pulse Resp BP Pulse Ox
98.2 F 75 14 123/76 92
02/05/25 16:02 02/05/25 21:00 02/05/25 21:00 02/05/25 21:00 02/05/25 21:10
Physical Exam
General: Well Developed, Well Nourished and No Apparent Distress
HEENT: NormoCephalic, Moist mucous membranes and Atraumatic
Respiratory: Clear
Cardiac: S1/S2 and Regular Rhythm; No Murmur or Rub
GI: Soft, Non Distended, Normal Bowel Sounds and Tender (lower quadrants ); No Organomegaly
Rectal: Deferred by Provider
Musculoskeletal: No Clubbing, No Cyanosis and No Edema
Skin: No Rash
Neuro: Nonfocal/grossly intact
Laboratory Results
-
02/05/25 16:12
02/05/25 16:12
Laboratory Results
PT 22.8 Sec (11.4-14.6) H 02/05/25 16:12
INR 2.00 02/05/25 16:12
APTT 31.1 Sec (23.4-35.0) 02/05/25 16:12
Lactic Acid 2.1 mmol/L (0.7-2.0) H 02/05/25 21:37
Total Bilirubin 0.8 mg/dl (0.2-1.3) 02/05/25 16:12
AST 18 U/L (14-36) 02/05/25 16:12
ALT 24 U/L (0-35) 02/05/25 16:12
Alkaline Phosphatase 55 U/L (38-126) 02/05/25 16:12
Data Reviewed
-
Lab Data: Labs Reviewed by me
Old Records: Reviewed
Impression/Plan
-
IMPRESSION:
PLAN:
# Acute infectious colitis
-Symptoms have significantly improved already
-Hemoglobin of 8.3 within baseline range
-CT scan reportedly showed colitis, report pending
-Hold Xarelto
-Monitor hemoglobin
-Stool studies pending
-IV fluids
-Hold Lasix
-Clear liquid diet
-Zosyn
# KALYN on CKD
# Mild hyperkalemia
-Creatinine 1.5 from 1.1
-IV fluids
Possible history of atrial fibrillation
-Patient not sure if she has this diagnosis
-Hold Xarelto
History of prior DVT
Chronic anemia
History of CVA
Essential hypertension
Type 2 diabetes
-Reduce Lantus from 30 units to 15 units
-Insulin sliding scale
Anxiety/PTSD
History of endocarditis
-hold lasix
Chronic pain syndrome
-Continue gabapentin
Hyperlipidemia
-Continue statin
COPD/asthma on 2 L baseline at night
-Continue inhalers
GERD
-Continue Protonix
Hypothyroidism
-Continue levothyroxine
History of cervical fracture
History of renal calculi
Full code
DVT prophylaxis�SCDs
Clear liquid diet
[2025-02-05 23:07] LABS: Glucose - Point of Care 278 mg/dl (70-99)
--- NOTE | 2025-02-06 00:30 | PTCARENOTE ---
Received patient from ER with colitis. AAOx3, anxious/ slightly forgetful . stable vitals. on clears now. Patient takes Dilaudid 4mg q4h PRN at home for chronic pain/ gabapentin 400mg TID. ER never updated her med list. None of her home med got
ordered. Patient is asking her Dilaudid/ gabapentin. [place] DICK made aware. POC reviewed with patient.
[2025-02-06] MEDS: DILAUDID 4 MG PO ×3 (00:43→21:00)
[2025-02-06] MEDS: NEURONTIN 400 MG PO ×4 (00:45→22:01)
[2025-02-06] MEDS: LANTUS 0.15 UNITS SC ×2 (00:47→22:02)
[2025-02-06] MEDS: ZOSYN 50 IV ×4 (04:28→22:02)
[2025-02-06] MEDS: SYNTHROID 125 MCG PO (05:24)
[2025-02-06 06:00] VITALS: BMI 37.4
[2025-02-06 06:03] LABS: Hematocrit 25.4 % (37.0-47.0); Hemoglobin 7.4 g/dL (12.0-16.0); Mean Corp Hgb Conc. 29.1 g/dL (33.0-37.0); Mean Corpuscular Hgb 29.1 pg (27.0-31.0); Mean Platelet Volume 10.7 fL (7.4-10.4); Platelet Count 155 10^3/uL (130-400); Red Blood Cell Count 2.54 10^6/uL (4.20-5.40); White Blood Cell Count 8.8 10^3/uL (4.8-10.8)
[2025-02-06 06:22] LABS: ALT (SGPT) 23 U/L (0-35); AST (SGOT) 16 U/L (14-36); Albumin 3.2 g/dl (3.5-5.0); Alkaline Phosphatase 51 U/L (38-126); Blood Urea Nitrogen 36 mg/dl (7-17); Carbon Dioxide 22 mmol/L (22-30); Chloride 108 mmol/L (98-107); Estimated Creatinine Clearance 45 ml/min; Glucose 214 mg/dl (70-99); Potassium 4.1 mmol/L (3.5-5.1); Sodium 137 mmol/L (135-145); Total Bilirubin 0.7 mg/dl (0.2-1.3); Total Protein 5.4 g/dl (6.3-8.2); eGFR 46.21
[2025-02-06 07:05] VITALS: BP 132/88
[2025-02-06 07:45] LABS: % Basophils 0.1 % (0-2); % Immature Granulocytes 6.3 % (0-0.5); % Lymphocytes 24.4 % (20.5-51.1); % Monocytes 3.3 % (1.7-9.3); % Neutrophils 65.9 % (42.2-75.2); Absolute Immature Granulocytes 0.6 10^3/uL (0-0.05); Absolute Lymphocytes 2.1 10^3/uL (1.2-3.4); Absolute Monocytes 0.3 10^3/uL (0.1-0.6); Absolute Neutrophils 5.8 10^3/uL (1.4-6.5); Nucleated Red Blood Cells % 0.8 %
[2025-02-06 08:06] LABS: Glucose - Point of Care 147 mg/dl (70-99)
[2025-02-06] MEDS: NOVOLOG FLEXPEN-LOW RESISTANCE SC ×3 (08:09→17:35)
[2025-02-06] MEDS: BENTYL 10 MG PO ×2 (09:12→20:06)
[2025-02-06] MEDS: DELTASONE 5 MG PO (09:17)
--- NOTE | 2025-02-06 12:13 | CM ---
Spoke with patient's daughter, Izabel, to obtain information for assessment. She stated that patient lives in a townhouse with one step to enter with daughter and her ex-spouse. She is able to independently bathe and dress but does need some
assistance with ADLs and personal care. She uses a cane to assist with her ambulation. Her family members assist with cooking, cleaning, laundry and diesel lube tech. She does not have a car or drive so when needed a friend or family member takes
her to her appointments, or Spiritism. Patient's daughter stated that she does struggle with steps and it is hard for her to get from the first floor to the second.
She has o2 and a CPAP.
She has had VN in the past through [place]. She has been to a SNF but her daughter could not remember which one.
Patient has a prescription plan and uses, [facility] in [place] for all of her medications.
Her PCP is, Patrick Slaughter.
Plan: Case management will continue to follow and assist with discharge planning. Home with VN if needed.
[2025-02-06 12:17] LABS: Glucose - Point of Care 116 mg/dl (70-99)
[2025-02-06 13:05] LABS: Glycohemoglobin (HgbA1c) 5.9 % (4.0-5.6)
[2025-02-06] MEDS: NSS 1000 IV (13:37)
--- NOTE | 2025-02-06 13:49 | W.PN.HOSP.TC ---
Today's Communication/Plan
-
Consult GI
Transfuse 1 unit of blood
Full liquid diet
Assessment / Plan
Assessment / Plan
# Acute colitis with bloody diarrhea.
- No further bloody stools.
- Unclear etiology. Infectious versus other etiologies.
- CT scan shows transverse colitis
- Hold Xarelto
- Continue to follow hemoglobin
- Stool studies pending
- Patient tolerating clears and wishes to get diet advanced-start full liquids
- Hold Lasix
- Continue with Zosyn
- Consult GI
# KALYN on CKD 3
# Mild hyperkalemia
- Creatinine 1.5 from 1.1
- Improved Cr to 1.3
- DC fluids if she tolerates full liquid diet
Hx of DVT needing catheter thrombolysis
-Hold Xarelto
History of prior DVT
Acute on Chronic anemia
Unclear reason for chronic anemia. She had 3 units of blood transfusion in the past apparently. Currently hemoglobin 7.4 and she is feeling very weak and fatigued. Most recent hemoglobin was 10.7 in 2023 number. She prefers transfusion because
of her fatigue and weakness and with the nature of her anemia and drop in H&H I agree there may be more benefit than risk.. She understands the risks and the benefit. Will transfuse 1 unit of blood.
History of CVA
Essential hypertension
Type 2 diabetes
-Reduce Lantus from 30 units to 15 units
-Insulin sliding scale
Anxiety/PTSD
History of endocarditis
Chronic pain syndrome
-Continue gabapentin
Hyperlipidemia
-Continue statin
COPD/asthma on 2 L baseline at night
-Continue inhalers
GERD
-Continue Protonix
Hypothyroidism
-Continue levothyroxine
History of cervical fracture
History of renal calculi
Full code
DVT prophylaxis�SCDs
Total time spent on today's encounter was 52 minutes which included time spent in counseling the patient/family regarding diagnosis and treatment plan as listed above, goals of care, and symptom management. Case was discussed with nursing staff,
specialists, and care coordinators/case management. All labs and imaging personally reviewed by me. Remainder the time spent in detailed review of previous records, lab data, imaging, and other medical provider documentation.
Anticipated Discharge: > 48 hours
Subjective/Interval History
-
Date of Service: February 06, 2025
No further bloody stools. No nausea vomiting. She feels hungry.
She is been feeling fatigued and tired. Denies shortness of breath or chest pain.
Objective Data
-
Labs:
Laboratory Results
02/06/25
05:41
WBC 8.8
Hgb 7.4 L
Hct 25.4 L
Plt Count 155
Sodium 137
Potassium 4.1
Chloride 108 H
Carbon Dioxide 22
BUN 36 H
Creatinine 1.3 H
Glucose 214 H
Calcium 8.0 L
Total Bilirubin 0.7
AST 16
ALT 23
Alkaline Phosphatase 51
Vital Signs:
Vital Signs
Temp Pulse Resp BP Pulse Ox
98.2 F 83 19 132/88 96
02/06/25 07:05 02/06/25 07:05 02/06/25 07:05 02/06/25 07:05 02/06/25 11:10
I&O
02/05/25 02/06/25 02/07/25
05:59 06:59 06:59
Intake Total 1330 / 1330
Balance 1330 / 1330
Review of Systems
-
Constitutional: Denies Fever or Chills
Respiratory: Denies Cough or Trouble Breathing
Cardiac: Denies Chest Pain
Neuro: Denies Dizzy
Physical Exam
-
General: No Apparent Distress
HEENT: Moist Mucous Membranes
Respiratory: Clear to Auscultation
Cardiac: Regular Rhythm and S1/S2; Negative Tachycardic
GI: Soft, Nondistended, Normal Bowel Sounds and Tender (upper abdomen across midline but no rebound or guarding)
Neuro: AO x 3
Data Reviewed
-
Labs: Labs Reviewed by me
[2025-02-06 13:50] VITALS: BP 153/81
[2025-02-06 14:06] VITALS: BP 157/72
[2025-02-06] MEDS: TYLENOL 650 MG PO (14:48)
[2025-02-06 15:05] VITALS: BP 145/77
[2025-02-06 16:07] VITALS: BP 152/76
[2025-02-06 17:23] LABS: Glucose - Point of Care 81 mg/dl (70-99)
[2025-02-06] MEDS: ZOFRAN ODT (ORALLY DISINTEGRATING) 4 MG PO (20:06)
[2025-02-06 21:53] LABS: Glucose - Point of Care 107 mg/dl (70-99)
[2025-02-06 23:15] VITALS: BP 125/59
[2025-02-07] MEDS: ZOSYN 50 IV ×4 (03:10→21:59)
[2025-02-07] MEDS: SYNTHROID 125 MCG PO (06:02)
[2025-02-07 06:36] LABS: Hematocrit 26.7 % (37.0-47.0); Hemoglobin 7.9 g/dL (12.0-16.0); Mean Corp Hgb Conc. 29.6 g/dL (33.0-37.0); Mean Corpuscular Hgb 28.9 pg (27.0-31.0); Mean Corpuscular Volume 97.8 fL (81.0-99.0); Mean Platelet Volume 10.6 fL (7.4-10.4); Platelet Count 131 10^3/uL (130-400); Red Blood Cell Count 2.73 10^6/uL (4.20-5.40); Red Cell Dist. Width 21.5 % (11.5-14.5)
[2025-02-07 07:03] LABS: Blood Urea Nitrogen 22 mg/dl (7-17); Carbon Dioxide 26 mmol/L (22-30); Chloride 109 mmol/L (98-107); Estimated Creatinine Clearance 49 ml/min; Glucose 71 mg/dl (70-99); Sodium 138 mmol/L (135-145); eGFR 50.86
[2025-02-07 07:40] VITALS: BP 146/77
[2025-02-07 07:55] LABS: Glucose - Point of Care 81 mg/dl (70-99)
[2025-02-07] MEDS: NOVOLOG FLEXPEN-LOW RESISTANCE SC ×2 (07:59→12:07)
[2025-02-07] MEDS: BENTYL 10 MG PO ×2 (08:10→20:41)
[2025-02-07] MEDS: NEURONTIN 400 MG PO ×3 (08:10→21:59)
[2025-02-07] MEDS: DELTASONE 5 MG PO (08:10)
[2025-02-07] MEDS: TYLENOL 650 MG PO ×2 (10:06→16:56)
[2025-02-07] MEDS: DILAUDID 4 MG PO ×2 (10:08→16:56)
--- NOTE | 2025-02-07 11:37 | CON.GI ---
Addendum entered and electronically signed by Everton Fortune MD 02/07/25 12:43:
I saw and examined the patient.
The OUTPATIENT ADMITTING CLERK or PA's note was reviewed and I agree with the note.
Comment:
This patient is a 64-year-old woman who has a history of asthma, COPD, prior DVT and possible atrial fibrillation on Xarelto. She was admitted with some dyspepsia like feeling and soft stool with blood in the toilet with symptoms for 2 weeks. She
has had prior colonoscopies with colon polyps. And her last colonoscopy was 2 years ago when she was admitted in which she had a fair prep. At that time she was post to repeat in 1 year. Currently she is hungry and wanting to eat regular food.
Her diarrhea is improving. She does have a hx of a gastric bypass and has had an egd at [facility] [address] scan with mild colitis in transverse colon
abd: soft, nontender
hgb 7.9
impression:
anemia (not new)
abdominal d/c improved
diarrhea improved/mild colitis
plan:
her recurrent issues in the face of known extensive DVT and possible afib make vascular causes of intemittent colitis more likely but for now:
- await stool cultures
- ok to advance po to lactose free
- follow hgb, she has a chronic anemia, check b12, folate, iron studies
- should have eventual egd/colonoscopy although can be easily done as outpatient now that she is improving
Original Note:
Consultation
-
Date/Time Consultation Requested: 02/06/25 1125
Date/Time Consultation Performed: 02/07/25 1100
Requesting Provider: Dr. Salazar
Performing Provider: Dr. Fortune/KAPIL Mera
Reason for Consultation: colitis
Medical History
Chief Complaint / HPI
Chief Complaint: diarrhea
History of Present Illness:
64yo with hx Asthma/COPD with O2 at hs possible atrial fibrillation on Xarelto, prior DVT, CVA, hypertension, diabetes, anxiety, PTSD, endocarditis, chronic pain syndrome,CKD, GERD, hypothyroidism, cervical fracture, renal calculi MR, GERD, anxiety,
hypothyroidism, obesity, prior gastric bypass, colon polyps, hx of anemia, prior EGD at [facility] 2 years go, colonoscopy with fair prep with repeat due at this time who presents to the ER with > 2 weeks of diarrhea and weakness. Asked to evaluate
fro the same. Patient states that 2 weeks ago she startes with acute onset of liquid/loose brown diarrhea. This was not associated with any pain. She denied any sick contacts or spoiled food. She thought she would 'ride it out' but after a couple
days she started using Imoidum without any relief. She then had blood in her diarrhea x 1 day and blood in the toilet. Still without any abdominal pain. She was able to eat and drink without any difficulty. She did get ' a cold' and was Rx 'an
antibiotic and steroid' she took for a couple days but stopped them. She states that she still has a sore throat. She denies any F, C, N, V melenas, dysphagia or odynophagia. No early satiety or unintentional weight loss. She is tolerating a full
liquid diet at this time. Stool is soft and formed. Stool culture pending. Stool for Cdiff cancelled as specimen received was formed stool.
Past Medical History
Past Medical History: Asthma, COPD, CVA, GERD, HTN, Hypothyroidism (hx keri's), NIDDM, Valvular Disease (moderate MR), Psychiatric (anxiety/PTSD) and Other (b/l PE's and DVT with filter, chronic anemia, chronic pain with opioid dependence,
MRosteoporosis, obesity, GERD, hx odontoid fracture, cervical fx, headaches, endocarditis, cellulitis, fatty liver colon polyps, multiple allergies,deviated septum ?colovaginal fistula but not noted with prior work up)
Past Surgical History: Cholecystectomy, Gynecological (hysterectomy, bladder lift), Urological (uretheral stent) and Other (abdominoplasty, gastric bypass)
Social History
Tobacco: Former Smoker
Alcohol: None
Drug: None
Living: With Family
Employment: Retired
Family History
Family History: Other (no family hx colon cA or polyps)
Allergies / Home Medications
Allergy/AdvReac Type Severity Reaction Status Date / Time
aspirin Allergy throat Verified 02/05/25 18:48
closes
codeine Allergy throat Verified 02/05/25 18:48
closes
heparin Allergy SEE BELOW Verified 02/05/25 18:48
hydrocodone Allergy throat Verified 02/05/25 18:48
closes
hydrocodone bitartrate Allergy Anaphylaxis Verified 02/05/25 18:48
[From Vicodin]
ibuprofen [Ibuprofen] Allergy Anaphylaxis Verified 02/05/25 18:48
iodine Allergy throat Verified 02/05/25 18:48
closes
ketorolac tromethamine Allergy Itching Verified 02/05/25 18:48
[From Toradol]
latex [Latex] Allergy Rash Verified 02/05/25 18:48
morphine [Morphine] Allergy low blood Verified 02/05/25 18:48
pressure
nitrofurantoin Allergy THROAT Verified 02/05/25 18:48
macrocrystalline CLOSES
[From Macrodantin]
oxycodone Allergy throat Verified 02/05/25 18:48
closes
propoxyphene Allergy throat Verified 02/05/25 18:48
closes
�Medication �Instructions �Recorded
ipratropium 0.5 mg-albuterol 3 mg 3 ml inhalation R Q6 PRN 08/11/22
(2.5 mg base)/3 mL nebulization sob/wheezing
soln
levothyroxine 175 mcg tablet 125 mcg PO DAILY AT 0700 Thyroid 08/11/22
prednisone 1 mg tablet 5 mg PO DAILY Anti-Inflammatory 04/30/23
insulin aspart U-100 100 unit/mL 7 unit SC AC Diabetes 05/28/23
(3 mL) subcutaneous pen
rivaroxaban 20 mg tablet (Xarelto) 20 mg PO QPM Blood Clot 06/28/23
Prevention/Tx
acetaminophen 325 mg tablet 650 mg (2 x 325 mg) PO Q4HPRN PRN 06/04/23
mild pain or temp >/= 100.4 F #0
tabs
dicyclomine 10 mg capsule 10 mg PO BID IRRITABLE BOWEL 06/07/23
SYNDROME
guaifenesin 100 mg/5 mL oral 100 mg PO Q4HPRN PRN cough 06/09/23
liquid (Siltussin SA)
hydromorphone 4 mg tablet 4 mg PO Q4HPRN PRN moderate to 06/16/23
severe pain #15 tabs
furosemide 20 mg tablet (Lasix) 20 mg PO DAILY #10 tabs 09/26/24
alendronate 10 mg tablet 10 mg PO DAILY Hormonal Agent 02/05/25
esomeprazole magnesium 40 mg 40 mg PO BID Gastrointestinal Issue 02/05/25
capsule,delayed release (Nexium)
gabapentin 400 mg capsule 400 mg PO TID Neurological 02/05/25
Condition
insulin glargine 100 unit/mL 30 unit SC HS Diabetes 02/05/25
subcutaneous cartridge
ondansetron 4 mg disintegrating 4 mg PO Q6H PRN nausea/ vomitting 02/05/25
tablet
sucralfate 1 gram tablet (Carafate) 1 g PO TID PRN acid reflex 02/05/25
valsartan 40 mg tablet 40 mg PO DAILY Blood Pressure 02/05/25
levofloxacin 750 mg tablet 750 mg PO DAILY Infection 02/06/25
Review of Systems
-
All other systems: A 12 pt ROS was Negative except as stated above in HPI
Vital Signs
Temp Pulse Resp BP Pulse Ox
98.2 F 67 17 146/77 97
02/07/25 07:40 02/07/25 07:40 02/07/25 07:40 02/07/25 07:40 02/07/25 10:19
Physical Exam
Exam
General: No Apparent Distress
HEENT: Anicteric
Respiratory: Clear (anterior)
Cardiac: Regular Rhythm
GI: Soft, Non Tender, Non Distended and Normal Bowel Sounds
Neuro: AO x 3
Psych: Calm
Results
WBC 8.0 10^3/uL (4.8-10.8) 02/07/25 05:54
Hgb 7.9 g/dL (12.0-16.0) L 02/07/25 05:54
Hct 26.7 % (37.0-47.0) L 02/07/25 05:54
MCV 97.8 fL (81.0-99.0) 02/07/25 05:54
Plt Count 131 10^3/uL (130-400) 02/07/25 05:54
Absolute Neuts (auto) 5.8 10^3/uL (1.4-6.5) 02/06/25 05:41
PT 22.8 Sec (11.4-14.6) H 02/05/25 16:12
INR 2.00 02/05/25 16:12
APTT 31.1 Sec (23.4-35.0) 02/05/25 16:12
Sodium 138 mmol/L (135-145) 02/07/25 05:54
Potassium 4.0 mmol/L (3.5-5.1) 02/07/25 05:54
Chloride 109 mmol/L (98-107) H 02/07/25 05:54
Carbon Dioxide 26 mmol/L (22-30) 02/07/25 05:54
BUN 22 mg/dl (7-17) H 02/07/25 05:54
Creatinine 1.2 mg/dL (0.6-1.0) H 02/07/25 05:54
Calcium 8.0 mg/dl (8.4-10.2) L 02/07/25 05:54
Total Bilirubin 0.7 mg/dl (0.2-1.3) 02/06/25 05:41
AST 16 U/L (14-36) 02/06/25 05:41
ALT 23 U/L (0-35) 02/06/25 05:41
Alkaline Phosphatase 51 U/L (38-126) 02/06/25 05:41
Diagnostic Image Results:
CT Abd/Pelvis:
IMPRESSION:
1. Mild bowel wall thickening involving the transverse colon, which may represent mild colitis.
2. Changes of prior gastric bypass surgery. No evidence of intestinal obstruction.
3. Mild intrahepatic biliary ductal dilation, unchanged compared to prior study. This may be within normal limits following cholecystectomy.
Findings are in agreement with the [facility] radiology report.
Prior GI Procedures:
EGD: several months ago at [facility]
Colonoscopy: � 03/2023 [facility]� � - Preparation of the colon was fair.
�� � � � � � � � � � � - One 7 mm polyp at the hepatic flexure, removed with
�� � � � � � � � � � � a cold snare. Resected and retrieved.
�� � � � � � � � � � � - One 8 mm polyp in the descending colon, removed with
�� � � � � � � � � � � a cold snare. Resected and retrieved.
�� � � � � � � � � � � - One 8 mm polyp at the recto-sigmoid colon, removed
�� � � � � � � � � � � with a cold snare. Resected and retrieved.
�� � � � � � � � � � � - One small polyp in the sigmoid colon, removed with a
�� � � � � � � � � � � jumbo cold forceps. Resected and retrieved.
�� � � � � � � � � � � - Non-bleeding hemorrhoids.
Assessment / Plan
-
64yo with hx Asthma/COPD with O2 at hs possible atrial fibrillation on Xarelto, prior DVT, CVA, hypertension, diabetes, anxiety, PTSD, endocarditis, chronic pain syndrome,CKD, GERD, hypothyroidism, cervical fracture, renal calculi MR, GERD, anxiety,
hypothyroidism, obesity, prior gastric bypass, hx of pancreatic cyst, no MRI follow up (2022), colon polyps, hx of anemia, prior EGD at [facility] 2 years go, colonoscopy with fair prep with repeat due at this time who presents to the ER with > 2
weeks of diarrhea and weakness. Asked to evaluate fro the same. Patient started on Zosyn with improvement of diarrhea. Now with soft, formed BM. Stool cultures pending. Stool study for C Diff rejected as stool was formed. Tolerating full liquid
diet. Wants to eat solid food.
Impression:
Diarrhea x 2 weeks
-Mild colitis seen on CT imaging transverse colon
Chronic anemia
-Hx Gastric bypass, also on Xarelto
Epsiode of rectal bleeding x 1 day, none further
Hx colon polyps with suboptimal prep
Hx DVT, possible PAF, hx prior CVA on Xarelto
Pancreatic cyst
COPD with O2 use hs
other medical problems:
-CKD
-DM
-MR
-HTN
-hypothyroidism
-obesity hx prior bypass
-chronic back pain with chronic narcotic use
-fatty liver
-anxiety
-keri
Plan:
-Await stool culture
-Continue Zosyn for now
-Low residue diet
-Patient without signs of bleeding here. Xarelto on hold here.
-Transfused 1 unit of PRBC on 02/07/24
-CBC in am, iron, ferrtin, TIBC, B12 and folate
-Start on Pantoprazole as patient was on Nexium as outpatient and is also on steroids.
-Outpatient Colonoscopy, to consider EGD at the same time in 8 weeks.
-Recommend outpatient MRI to eval pancreatic cyst as patient did not have performed in 2022.
-Further recommendations to be forthcoming.
-
-
Thank you for consultation and allowing me to participate in the patient's care. Please call the integration project manager GI physician during the after hours with any questions or concerns.
[2025-02-07 12:03] LABS: Glucose - Point of Care 124 mg/dl (70-99)
[2025-02-07] MEDS: PROTONIX 20 MG PO (12:47)
--- NOTE | 2025-02-07 13:28 | CM ---
Patient seen at bedside with physician. Patient plan is to return home with VN and is uncertain about VN. Patient will continue to follow for discharge planning needs.
Plan; home with VN; pending pt/ot assessment
[2025-02-07 14:57] VITALS: BP 117/58
--- NOTE | 2025-02-07 15:55 | PTCARENOTE ---
pt requested breathing tx, respiratory notified
--- NOTE | 2025-02-07 16:17 | W.PN.HOSP.TC ---
Today's Communication/Plan
-
advancing diet
d/c planning
Assessment / Plan
Assessment / Plan
pt is a 64 year old female
Acute colitis with bloody diarrhea--likely infectious--apprec GI--advance diet--outpt EGD/colonoscopy--cont zosyn-- CT scan shows transverse colitis-- Hold Xarelto-- Stool studies pending-- Hold Lasix
KALYN on CKD 3 with mild hyperkalemia--creat improved with IVF
Hx of DVT needing catheter thrombolysis--Hold Xarelto
History of prior DVT--xarelto
Acute anemia on anemia of chronic disease--She had 3 units of blood transfusion in the past apparently--s/p transfuse 1 unit of blood.
History of CVA
Essential hypertension
Type 2 diabetes--Reduce Lantus from 30 units to 15 units--Insulin sliding scale
Anxiety/PTSD
History of endocarditis
Chronic pain syndrome--Continue gabapentin
Hyperlipidemia--Continue statin
COPD/asthma on 2 L baseline at night--Continue inhalers
GERD--Continue Protonix
Hypothyroidism--Continue levothyroxine
History of cervical fracture
History of renal calculi
code status--Full code
DVT prophylaxis�SCDs
Anticipated Discharge: 24 - 48 hours
Subjective/Interval History
-
Date of Service: February 07, 2025
pt without c/o
Objective Data
-
Labs:
Laboratory Results
02/07/25
05:54
WBC 8.0
Hgb 7.9 L
Hct 26.7 L
Plt Count 131
Sodium 138
Potassium 4.0
Chloride 109 H
Carbon Dioxide 26
BUN 22 H
Creatinine 1.2 H
Glucose 71
Calcium 8.0 L
Vital Signs:
max temp for 24 hours
02/06/25
15:05
Temp 98.5 F
Vital Signs
Temp Pulse Resp BP Pulse Ox
97.9 F 76 17 117/58 96
02/07/25 14:57 02/07/25 14:57 02/07/25 14:57 02/07/25 14:57 02/07/25 14:57
I&O
02/06/25 02/07/25 02/08/25
06:59 06:59 06:59
Intake Total 2660 / 2660
Balance 0 / 2660
Review of Systems
-
All other systems: Reviewed and negative
Physical Exam
-
General: Well Developed, Well Nourished and Obese
HEENT: Normocephalic and Atraumatic; Negative Oxygen
Respiratory: Clear to Auscultation; Negative Wheezes or Rhonchi
Cardiac: Regular Rhythm and S1/S2; Negative Murmur
GI: Soft, Nontender, Nondistended and Normal Bowel Sounds
Musculoskeletal: No Clubbing, No Cyanosis and No Edema
Skin: Warm and Dry
Neuro: Awake and Alert
Psych: Calm
[2025-02-07] MEDS: DUONEB 3 ML INH (16:37)
[2025-02-07 16:46] LABS: Glucose - Point of Care 234 mg/dl (70-99)
[2025-02-07] MEDS: NOVOLOG FLEXPEN-LOW RESISTANCE 2 UNITS SC (18:58)
[2025-02-07] MEDS: DESENEX/MITRAZOL/ZEASORB 1 APPLIC TOPICAL (20:41)
[2025-02-07 21:39] LABS: Glucose - Point of Care 245 mg/dl (70-99)
[2025-02-07] MEDS: LANTUS 0.15 UNITS SC (21:59)
[2025-02-07 23:00] VITALS: BP 121/62
[2025-02-08] MEDS: ZOSYN 50 IV ×2 (03:13→10:29)
[2025-02-08] MEDS: TYLENOL 650 MG PO (05:56)
[2025-02-08] MEDS: DILAUDID 4 MG PO (05:57)
[2025-02-08] MEDS: SYNTHROID 125 MCG PO (06:00)
[2025-02-08 06:38] LABS: Hematocrit 27.6 % (37.0-47.0); Hemoglobin 8.1 g/dL (12.0-16.0); Mean Corp Hgb Conc. 29.3 g/dL (33.0-37.0); Mean Corpuscular Volume 98.9 fL (81.0-99.0); Mean Platelet Volume 10.8 fL (7.4-10.4); Platelet Count 134 10^3/uL (130-400); Red Blood Cell Count 2.79 10^6/uL (4.20-5.40); Red Cell Dist. Width 21.1 % (11.5-14.5); White Blood Cell Count 8.2 10^3/uL (4.8-10.8)
[2025-02-08 07:22] LABS: Blood Urea Nitrogen 19 mg/dl (7-17); Calcium 8.6 mg/dl (8.4-10.2); Carbon Dioxide 30 mmol/L (22-30); Chloride 109 mmol/L (98-107); Estimated Creatinine Clearance 49 ml/min; Glucose 99 mg/dl (70-99); Iron 58 ug/dl (37-170); Magnesium 2.2 mg/dl (1.6-2.3); Sodium 140 mmol/L (135-145); eGFR 50.86
[2025-02-08 07:30] LABS: Percent Saturation 20 % (20-50); Total Iron Binding Capacity 280 ug/dl (265-497)
[2025-02-08 07:39] VITALS: BP 108/67
[2025-02-08 07:47] LABS: Glucose - Point of Care 97 mg/dl (70-99)
[2025-02-08 08:29] LABS: Folate > 20.0 ng/ml (2.76-20); Vitamin B12 313 pg/ml (239-931)
[2025-02-08] MEDS: DELTASONE 5 MG PO (08:32)
[2025-02-08] MEDS: DESENEX/MITRAZOL/ZEASORB 1 APPLIC TOPICAL (08:32)
[2025-02-08] MEDS: BENTYL 10 MG PO (08:32)
[2025-02-08] MEDS: PROTONIX 20 MG PO (08:32)
[2025-02-08] MEDS: NEURONTIN 400 MG PO (08:32)
[2025-02-08] MEDS: ZOFRAN ODT (ORALLY DISINTEGRATING) 4 MG PO (08:39)
[2025-02-08] MEDS: NOVOLOG FLEXPEN-LOW RESISTANCE SC (08:42)
--- NOTE | 2025-02-08 11:01 | W.PN.HOSP.TC ---
Today's Communication/Plan
-
d/c
Assessment / Plan
Assessment / Plan
pt is a 64 year old female
Acute colitis with bloody diarrhea--likely infectious--apprec GI--advance diet--outpt EGD/colonoscopy--zosyn to oral abx-- CT scan shows transverse colitis-- Hold Xarelto-- Stool studies negative-- restart Lasix when bowels more solid
KALYN on CKD 3 with mild hyperkalemia--creat improved with IVF
Hx of DVT needing catheter thrombolysis--Hold Xarelto
History of prior DVT--xarelto
Acute anemia on anemia of chronic disease--She had 3 units of blood transfusion in the past apparently--s/p transfuse 1 unit of blood.
History of CVA
Essential hypertension
Type 2 diabetes--Reduce Lantus from 30 units to 15 units--Insulin sliding scale
Anxiety/PTSD
History of endocarditis
Chronic pain syndrome--Continue gabapentin
Hyperlipidemia--Continue statin
COPD/asthma on 2 L baseline at night--Continue inhalers
GERD--Continue Protonix
Hypothyroidism--Continue levothyroxine
History of cervical fracture
History of renal calculi
code status--Full code
DVT prophylaxis�SCDs
Anticipated Discharge: Today
Subjective/Interval History
-
Date of Service: February 08, 2025
pt had diarrhea but asking about d/c
Objective Data
-
Labs:
Laboratory Results
02/08/25
05:40
WBC 8.2
Hgb 8.1 L
Hct 27.6 L
Plt Count 134
Sodium 140
Potassium 4.0
Chloride 109 H
Carbon Dioxide 30
BUN 19 H
Creatinine 1.2 H
Glucose 99
Calcium 8.6
Vital Signs:
max temp for 24 hours
02/08/25
07:39
Temp 98.1 F
Vital Signs
Temp Pulse Resp BP Pulse Ox
98.1 F 78 17 108/67 97
02/08/25 07:39 02/08/25 07:39 02/08/25 07:39 02/08/25 07:39 02/08/25 07:39
I&O
02/07/25 02/08/25 02/09/25
06:59 06:59 06:59
Intake Total 2660 / 2660 1320 / 1320
Balance 2660 / 2660 1320 / 1320
Review of Systems
-
All other systems: Reviewed and negative
Abdomen/GI: Reports Diarrhea
Physical Exam
-
General: Well Developed, Well Nourished and No Apparent Distress
HEENT: Normocephalic, Atraumatic and Oxygen (at HS)
Respiratory: Clear to Auscultation; Negative Wheezes or Rhonchi
Cardiac: Regular Rhythm and S1/S2; Negative Murmur
GI: Soft, Nontender, Nondistended and Normal Bowel Sounds
Musculoskeletal: No Clubbing, No Cyanosis and No Edema
Neuro: Awake and Alert
Psych: Calm
--- NOTE | 2025-02-08 11:02 | CM ---
Patient seen at bedside with physician. Patient completed IMM and signed form placed on chart. Patient to go home with daughter. VM left for patient aureliajuniorpedro Galell and patient declined VN supports at discharge. Patient states she only uses her O2 at
night and does not need a tank for transport home. CM will continue to follow for discharge planning needs.
Plan; home with daughter to provide transportation.
--- NOTE | 2025-02-08 11:24 | W.PN.GI.CBS2 ---
Today's Communication / Plan
-
As per plan
Assessment / Plan
-
64yo with hx Asthma/COPD with O2 at hs possible atrial fibrillation on Xarelto, prior DVT, CVA, hypertension, diabetes, anxiety, PTSD, endocarditis, chronic pain syndrome,CKD, GERD, hypothyroidism, cervical fracture, renal calculi MR, GERD, anxiety,
hypothyroidism, obesity, prior gastric bypass, hx of pancreatic cyst, no MRI follow up (2022), colon polyps, hx of anemia, prior EGD at [facility] 2 years go, colonoscopy with fair prep with repeat due at this time who presents to the ER with > 2
weeks of diarrhea and weakness. Asked to evaluate fro the same. Patient started on Zosyn with improvement of diarrhea. Now with soft, formed BM.
-- Stool culture negative
-- Stool rejected for C. difficile as it was formed
-- Bowel movement on 02/07/25
-- Bowel movement on 02/08/2025
-Iron 58, TIBC 280, percent saturation 20, ferritin 21.0, B12 313, folate greater than 20
Impression:
Diarrhea x 2 weeks, now having soft bowel movements.
-Mild colitis seen on CT imaging transverse colon
-Stool culture negative
-Treated with Zosyn
Chronic anemia
-Hx Gastric bypass, also on Xarelto
Epsiode of rectal bleeding x 1 day, none further
Hx colon polyps with suboptimal prep
Hx DVT, possible PAF, hx prior CVA on Xarelto
Pancreatic cyst
COPD with O2 use hs
other medical problems:
-CKD
-DM
-MR
-HTN
-hypothyroidism
-obesity hx prior bypass
-chronic back pain with chronic narcotic use
-fatty liver
-anxiety
-keri
Plan:
-Patient has 1 more dose of Zosyn left.
-Low residue diet/low lactose/low-fat diet
-Patient without signs of bleeding here. Xarelto on hold here.
-Transfused 1 unit of PRBC on 02/07/24
-Hemoglobin stable, iron studies performed, low normal percent iron saturation, ferritin 21 in the setting of gastric bypass as well as Xarelto. Also low normal B12.
-Recommend B12 Gummies or PCP follow-up for B12 supplementation
-Start on Pantoprazole as patient was on Nexium as outpatient and is also on steroids.
-Outpatient Colonoscopy, to consider EGD at the same time in 8 weeks. (Will need to hold Xarelto)
-Recommend outpatient MRI to eval pancreatic cyst as patient did not have performed in 2022.
-Outpatient follow-up appointment on 03/15/2025 at 1130 with KAPIL Raymundo
Subjective
Subjective
Date of Service: February 08, 2025
Patient with soft bowel movement yesterday. Patient with soft bowel movement today. She unfortunately could not hold it as she was ambulating with staff to restroom. Discussed with nursing staff. This was not watery. She is tolerating diet.
Last night she had turkey with mashed potatoes. This morning had omelette with cheese and sausage. Denies any abdominal pain. Recommended patient follow a low-fat/low lactose diet as well. Will add probiotics (Florastor twice a day).
Objective
Data Reviewed
Laboratory Data:
Laboratory Results
02/08/25 05:40
02/08/25 05:40
Laboratory Results
PT 22.8 Sec (11.4-14.6) H 02/05/25 16:12
INR 2.00 02/05/25 16:12
APTT 31.1 Sec (23.4-35.0) 02/05/25 16:12
Magnesium 2.2 mg/dl (1.6-2.3) 02/08/25 05:40
Total Bilirubin 0.7 mg/dl (0.2-1.3) 02/06/25 05:41
AST 16 U/L (14-36) 02/06/25 05:41
ALT 23 U/L (0-35) 02/06/25 05:41
Alkaline Phosphatase 51 U/L (38-126) 02/06/25 05:41
Vital Signs and I&O:
Vital Signs
Temp Pulse Resp BP Pulse Ox
98.1 F 78 17 108/67 97
02/08/25 07:39 02/08/25 07:39 02/08/25 07:39 02/08/25 07:39 02/08/25 07:39
I&O
02/07/25 02/08/25 02/09/25
06:59 06:59 06:59
Intake Total 2660 / 2660 1320 / 1320
Balance 2660 / 2660 1320 / 1320
Physical Exam
Physical Exam
HEENT: Anicteric
Cardiology: Normal Sinus Rhythm
Pulmonary: Clear
GI: Soft, Non Distended, Non Tender and Normal Bowel Sounds
Neuro: Non Focal
[2025-02-08 11:40] LABS: Glucose - Point of Care 227 mg/dl (70-99)
[2025-02-08 12:21] VITALS: BP 116/74
[2025-02-08] MEDS: NOVOLOG FLEXPEN-LOW RESISTANCE 2 UNITS SC (12:44)
[2025-02-08] MEDS: FLORASTOR 250 MG PO (12:44)
--- NOTE | 2025-02-08 17:14 | W.DCSUMMARY ---
Discharge Summary
Discharge Data
Date of Admission: 02/05/25
Date of Discharge: 02/08/25
-
Pending Results: No
Hospital Course
Primary care physician : Patrick Slaughter
Principal Discharge diagnosis : Acute infectious colitis with bloody diarrhea
Chronic Discharge diagnosis : Acute kidney injury on chronic kidney disease stage III with mild hyperkalemia, history of deep venous thrombosis needing catheter thrombolysis now on anticoagulation, acute anemia and anemia of chronic disease, history
of stroke, essential hypertension, type 2 diabetes mellitus, anxiety/posttraumatic stress disorder, history of endocarditis, history of chronic pain syndrome, hyperlipidemia, acute hypoxemic respiratory insufficiency from chronic obstructive
pulmonary disease on 2 L oxygen baseline at night only, gastroesophageal reflux disease, hypothyroidism
Hospital Course : Patient is a 64-year-old female who presented with bloody diarrhea for 2 to 3 days prior to admission. She stated that the first day there was a lot of blood but that has since improved. She denied any bloody stools on the day of
admission. She did have nausea and vomiting also without any blood. She did have pain across her lower abdomen. She denied eating any outside food or recent travel or sick contacts. Patient was admitted.
Problem #1: Acute infectious colitis with bloody diarrhea. Patient was started on IV Zosyn. This appeared to be more infectious. CAT scan showed transverse colitis. Xarelto was held due to bloody stools. Lasix was also held due to the
significant amounts of diarrhea. Both of these can be restarted when her bowels are more solid. She was seen in consultation by GI. Her diet was advanced and she was tolerating that. It is recommended she have an outpatient EGD and colonoscopy.
Stool studies were negative for Salmonella, Shigella, Aeromonas, Plesiomonas, Campylobacter, E. coli Shiga toxin.
Problem #2: All other medical issues. These include Acute kidney injury on chronic kidney disease stage III with mild hyperkalemia, history of deep venous thrombosis needing catheter thrombolysis now on anticoagulation, acute anemia and anemia of
chronic disease, history of stroke, essential hypertension, type 2 diabetes mellitus, anxiety/posttraumatic stress disorder, history of endocarditis, history of chronic pain syndrome, hyperlipidemia, acute hypoxemic respiratory insufficiency from
chronic obstructive pulmonary disease on 2 L oxygen baseline at night only, gastroesophageal reflux disease, hypothyroidism. These medical conditions were stable during her hospitalization. Medications were continued as able. In regard to the
acute kidney injury, this resolved back to her baseline with IV fluids.
Patient is stable for discharge home at this time. If there are any questions regarding this dictation or her hospital stay, please not hesitate to call. Our office number is [phone].
Time for discharge 35 minutes.
Important imaging findings :
CT SCAN ABDOMEN/PELVIS IMPRESSION:
1. Mild bowel wall thickening involving the transverse colon, which may represent mild colitis.
2. Changes of prior gastric bypass surgery. No evidence of intestinal obstruction.
3. Mild intrahepatic biliary ductal dilation, unchanged compared to prior study. This may be within normal limits following cholecystectomy.
Discharge Plan
-
Patient Disposition: Home (Routine Discharge)
Discharge Diagnosis/Procedures: Acute colitis with bloody diarrhea, acute kidney injury on chronic kidney disease stage III, history of deep venous thrombosis needing catheter thrombolysis along with chronic anticoagulation, acute anemia on anemia
of chronic disease, history of stroke, essential hypertension, type 2 diabetes mellitus, anxiety/posttraumatic stress disorder, history of endocarditis, chronic pain syndrome, hyperlipidemia, chronic obstructive pulmonary disease/asthma with chronic
hypoxemic respiratory insufficiency requiring 2 L oxygen at nighttime, gastroesophageal reflux disease, hypothyroidism, history of cervical fracture, history of renal calculi
Condition: Fair
Diet: As tolerated and Diabetic, Carb Controlled
Activity: As tolerated
Driving Restrictions: Not until seen by your Dr
Bathing Restrictions: None
Referrals:
Nivia Wiley CRNP [Specified Professional Personl] - 03/15/25 11:30 am
Patrick Slaughter MD [Family Provider] - in less than 1 week
Prescriptions:
New
amoxicillin-pot clavulanate [Augmentin] 500-125 mg tablet
1 tab PO BID Qty: 10 0RF
metronidazole 500 mg tablet
500 mg PO BID Qty: 10 0RF
Continued
levothyroxine 175 mcg Tablet
125 mcg PO DAILY AT 0700
ipratropium-albuterol 0.5 mg-3 mg(2.5 mg base)/3 mL Solution For Nebulization
3 ml INHALATION R Q6 PRN (Reason: sob/wheezing)
prednisone 1 mg Tablet
5 mg PO DAILY
insulin aspart U-100 100 unit/mL (3 mL) Insulin Pen
1 sliding scale dose SC AC
Patient Comments:
with meals
Rx Instructions:
sliding scale
acetaminophen 325 mg Tablet
650 mg PO Q4HPRN PRN (Reason: mild pain or temp >/= 100.4 F) Qty: 0 0RF
dicyclomine 10 mg capsule
10 mg PO BID
hydromorphone 4 mg Tablet
4 mg PO Q4HPRN PRN (Reason: moderate to severe pain) Qty: 15 0RF
esomeprazole magnesium [Nexium] 40 mg Capsule,Delayed Release(Dr/Ec)
40 mg PO BID
gabapentin 400 mg Capsule
400 mg PO TID
ondansetron 4 mg tablet,disintegrating
4 mg PO Q6H PRN (Reason: nausea/ vomitting)
alendronate 10 mg Tablet
10 mg PO DAILY
valsartan 40 mg Tablet
40 mg PO DAILY
sucralfate [Carafate] 1 gram tablet
1 g PO TID PRN (Reason: acid reflex)
insulin glargine 100 unit/mL Cartridge
30 unit SC HS
Held
Xarelto 20 mg tablet
20 mg PO QPM
Hold Instructions: restart 02/09/25
furosemide [Lasix] 20 mg tablet
20 mg PO DAILY Qty: 10 0RF
Hold Instructions: restart when bowels are more formed
Discharge Orders:
Discharge Patient (As Directed); Ordered 02/08/25
Ordered By: Rupinder Thomason
Discharge Date and Time
Discharge Date/Time: 02/08/25 13:00
Print Language: FAROESE
== END 2025-02-08 13:00 | disposition home or self-care (01) | DRG 392 ==
LOC: 3 WEST ACU 22:24
PROVIDERS: Internal Medicine; Nurse Practitioner; Physician Assistant; Student in an Organized Health Care Education/Training Program; ADMITTING PHYSICIAN Hospitalist; ATTENDING PHYSICIAN Internal Medicine; CONSULT PHYSICIAN Internal Medicine; EMERGENCY PHYSICIAN Emergency Medicine; FAMILY PHYSICIAN Internal Medicine
PROC: 30233N1 Transfusion of Nonautologous Red Blood Cells into Peripheral Vein, Percutaneous Approach (ICD-10-PCS; 2025-02-06)
DX: A09 Infectious gastroenteritis and colitis, unspecified (principal); N17.9 Acute kidney failure, unspecified; J44.0 Chronic obstructive pulmonary disease with (acute) lower respiratory infection; D62 Acute posthemorrhagic anemia; I48.91 Unspecified atrial fibrillation; I12.9 Hypertensive chronic kidney disease with stage 1 through stage 4 chronic kidney disease, or unspecified chronic kidney disease; N18.9 Chronic kidney disease, unspecified; Z79.01 Long term (current) use of anticoagulants; Z86.718 Personal history of other venous thrombosis and embolism; Z98.84 Bariatric surgery status
CPT/HCPCS: 74177; 80048; 80053; 82607; 82728; 82746; 82962; 83036; 83540; 83550; 83605; 83735; 85025; 85027; 85610; 85730; 86850; 86900; 86901; 86920; 87045; 87046; 87070; 87147; 87427; 94640; 96361; 96365; 96375; 99285; P9016; Q9967

== ENCOUNTER 2025-10-13 15:55 | Emergency (ER) | payer OTHER, SELFPAY ==
[2025-10-13 15:59] VITALS: BP 160/68
--- NOTE | 2025-10-13 16:57 | ED.GENMED ---
History of Present Illness
<Juan May PA-C - Last Filed: 10/13/25 21:20>
General
Chief Complaint: Abdominal Symptoms
Source: patient and records
Time Seen by Provider: 10/13/25 16:34
History of Present Illness
History of Present Illness:
65-year-old female with past medical history of previous CVA, DVT status post catheter thrombolysis on chronic Xarelto, endocarditis, hypertension, hyperlipidemia, insulin-dependent diabetes presenting to the emergency department for evaluation of
1 week of bloody diarrhea, has tried Imodium which initially was somewhat helpful but has since become unhelpful, mild cramping associated but no other concerns. Patient had similar episode back in January requiring admission which was due to
suspected infectious colitis and treated with antibiotics. Patient does note that she was recently admitted at [facility] in their ICU for complications from interstitial cystitis and was on antibiotics at that time. No recent travel, no
known sick contacts. She denies any fevers with this. She notes that her last bloody stool was around 10 AM this morning, she describes her stools as intermittently formed, sometimes loose and sometimes watery.
Past History
<Juan May PA-C - Last Filed: 10/13/25 21:20>
Past History
ED Past Medical History: Asthma, COPD (?), CVA (Left sided weakness), GERD, HTN, Hypercholesterolemia, IDDM, Hypothyroidism, Psychiatric (Anxiety, PTSD) and Other (Cervical fracture, Headache, Endocarditis, Renal calculus, Cellulitis, PNA, Anemia,
DVT, )
ED Past Surgical History: Cholecystectomy, Gynecological (Hysterectomy), Urological (Bladder lift) and Other (Gastric bypass, Tummy tuck, IVC filter)
Social History
Tobacco: Former smoker
Alcohol: None
Drug: None
Personal:
Living: with family
Employment: Employed
Family History
Family History: Hypertension
Review of Systems
<Juan May PA-C - Last Filed: 10/13/25 21:20>
Review of Systems
All Other Systems: ROS reviewed and negative except as documented in HPI and ROS
Phy Exam
<Juan May PA-C - Last Filed: 10/13/25 21:20>
Physical Exam
Physical Exam:
GENERAL: Alert , in no apparent distress, appears older than stated age
EYE: clear conjunctiva b/l
HEAD: NCAT
ENT: o/p clr, mmm.
CARDIAC: Regular rate and rhythm .
LUNGS: Clear breath sounds bilaterally, no acute respiratory distress, no wheezes/rales/rhonchi
ABDOMEN: Soft, without focal tenderness, no r/g, no cvat
RECTAL EXAM: Chaperoned by ED EL Canela, light yellow-brown stool, heme-negative, no external hemorrhoids
NEUROLOGICAL: Alert and oriented
SKIN: Warm and dry, skin intact. somewhat pale
MUSCULOSKELETAL: No edema, well perfused.
PSYCH: Normal and appropriate interaction.
Scores
<Juan May PA-C - Last Filed: 10/13/25 21:20>
Heart Failure Risk
Heart Failure Risk Score: Not Applicable
Heart Score for Chest Pain Patients
STEMI patient?: Not applicable
Withdrawal Assessment of Alcohol
Withdrawal Assessment Completed?: Not applicable
Course
<Juan May PA-C - Last Filed: 10/13/25 21:20>
Orders/Labs/Results
Orders:
Orders
10/13/25 16:52
Stool Culture Urgent
ESTHER Source: Feces/Stool
Specimen Description:
Date Specimen was Collected: 10/13/25
Time Specimen was Collected: 16:56
Diphenhydramine [Benadryl] 50 mg IV NOW STA
Hydrocortisone Sod Succinate [Solu-Cortef] 200 mg IV NOW STA
10/13/25 16:53
CT Abd/pelvis W Iv Cont Urgent
Comment:
Reason For Exam: bloodied diarrhea x 1 week, cramping
10/13/25 17:21
Type+Screen Urgent
Complete Blood Count/With Diff Urgent
Comprehensive Metabolic Panel Urgent
Lactic Acid Q4H
Comment: CANCEL 2nd LACTIC ACID IF 1st LACTIC ACID IS LESS THAN 2
Lipase Urgent
PTT Urgent
Prothrombin Time Urgent
Abnormal Lab Results
10/13/25
17:21
RBC 2.97 L 10^6/uL
(4.20-5.40)
Hgb 8.5 L g/dL
(12.0-16.0)
Hct 28.1 L %
(37.0-47.0)
MCHC 30.2 L g/dL
(33.0-37.0)
RDW 17.7 H %
(11.5-14.5)
Plt Count 128 L 10^3/uL
(130-400)
MPV 11.2 H fL
(7.4-10.4)
Abs Immat Gran (auto) 0.1 H 10^3/uL
(0-0.05)
Absolute Neuts (auto) 7.2 H 10^3/uL
(1.4-6.5)
Lymphocytes % 20.4 L %
(20.5-51.1)
PT 23.8 H Sec
(11.4-14.6)
APTT 37.7 H Sec
(23.4-35.0)
Chloride 113 H mmol/L
(98-107)
Carbon Dioxide 21 L mmol/L
(22-30)
BUN 20 H mg/dl
(7-17)
Glucose 294 H mg/dl
(70-99)
Calcium 8.3 L mg/dl
(8.4-10.2)
Total Protein 6.1 L g/dl
(6.3-8.2)
Albumin 3.4 L g/dl
(3.5-5.0)
10/13/25 17:21
10/13/25 17:21
Vital Signs
Initial and Last Documented VS:
Initial Vital Signs
Temp Pulse Resp BP Pulse Ox
98.4 F 73 16 160/68 95
10/13/25 15:59 10/13/25 15:59 10/13/25 15:59 10/13/25 15:59 10/13/25 15:59
Last Documented Vital Signs
Temp Pulse Resp BP Pulse Ox
98.6 F 56 20 173/80 95
10/13/25 17:25 10/13/25 17:25 10/13/25 17:25 10/13/25 19:02 10/13/25 19:47
<Christiano Figueroa MD - Last Filed: 10/13/25 20:06>
Orders/Labs/Results
Orders:
Orders
10/13/25 16:52
Stool Culture Urgent
ESTHER Source: Feces/Stool
Specimen Description:
Date Specimen was Collected: 10/13/25
Time Specimen was Collected: 16:56
Diphenhydramine [Benadryl] 50 mg IV NOW STA
Hydrocortisone Sod Succinate [Solu-Cortef] 200 mg IV NOW STA
10/13/25 16:53
CT Abd/pelvis W Iv Cont Urgent
Comment:
Reason For Exam: bloodied diarrhea x 1 week, cramping
10/13/25 17:21
Type+Screen Urgent
Complete Blood Count/With Diff Urgent
Comprehensive Metabolic Panel Urgent
Lactic Acid Q4H
Comment: CANCEL 2nd LACTIC ACID IF 1st LACTIC ACID IS LESS THAN 2
Lipase Urgent
PTT Urgent
Prothrombin Time Urgent
Abnormal Lab Results
10/13/25
17:21
RBC 2.97 L 10^6/uL
(4.20-5.40)
Hgb 8.5 L g/dL
(12.0-16.0)
Hct 28.1 L %
(37.0-47.0)
MCHC 30.2 L g/dL
(33.0-37.0)
RDW 17.7 H %
(11.5-14.5)
Plt Count 128 L 10^3/uL
(130-400)
MPV 11.2 H fL
(7.4-10.4)
Abs Immat Gran (auto) 0.1 H 10^3/uL
(0-0.05)
Absolute Neuts (auto) 7.2 H 10^3/uL
(1.4-6.5)
Lymphocytes % 20.4 L %
(20.5-51.1)
PT 23.8 H Sec
(11.4-14.6)
APTT 37.7 H Sec
(23.4-35.0)
Chloride 113 H mmol/L
(98-107)
Carbon Dioxide 21 L mmol/L
(22-30)
BUN 20 H mg/dl
(7-17)
Glucose 294 H mg/dl
(70-99)
Calcium 8.3 L mg/dl
(8.4-10.2)
Total Protein 6.1 L g/dl
(6.3-8.2)
Albumin 3.4 L g/dl
(3.5-5.0)
10/13/25 17:21
10/13/25 17:21
Vital Signs
Initial and Last Documented VS:
Initial Vital Signs
Temp Pulse Resp BP Pulse Ox
98.4 F 73 16 160/68 95
10/13/25 15:59 10/13/25 15:59 10/13/25 15:59 10/13/25 15:59 10/13/25 15:59
Last Documented Vital Signs
Temp Pulse Resp BP Pulse Ox
98.6 F 56 20 173/80 95
10/13/25 17:25 10/13/25 17:25 10/13/25 17:25 10/13/25 19:02 10/13/25 19:47
<Juan May PA-C - Last Filed: 10/13/25 21:20>
MDM/Problems Addressed
Differential Diagnosis Includes:
Infectious vs Inflammatory colitis
Abx associated colitis/C.Diff
Diverticulitis
IBD
Malignancy
Anemia
Ischemic Bowel less likely given lack of pain and already anticoagulated
MDM/Problems Addressed:
65-year-old female presenting to the ER for evaluation of 1 week of diarrhea, intermittently bloody, on anticoagulation. Similar episode back in January requiring admission for IV antibiotics. Patient notes recent hospitalization at [facility] for complications from interstitial cystitis and was on antibiotics at that time. I do have some clinical concern for C. difficile colitis given this history. Will attempt for stool studies. CT scan ordered. Patient reports an iodine
allergy, has received IV dye in the past but with pretreatment so we will perform this as well. Labs ordered. Anticipate admission
Chronic conditions affecting care: Other (Anticoagulation)
<Juan May PA-C - Last Filed: 10/13/25 21:20>
*Radiology
Radiology exam reviewed: radiology read reviewed
*Pulse Oximetry
SaO2: 95
Oxygen Mode of Delivery: Room air
Patient hypoxic: no
*Critical Care Note
Total Time (30-74mins, 75-104mins- exclusive of procedures): Not Applicable
Data Reviewed
Review of Other/Old Records Reveals: Labs, Records and Testing
<Juan May PA-C - Last Filed: 10/13/25 21:20>
Comment
Comment:
Last colonoscopy from March 04, 2023
Impression: - Preparation of the colon was fair.
- One 7 mm polyp at the hepatic flexure, removed with
a cold snare. Resected and retrieved.
- One 8 mm polyp in the descending colon, removed with
a cold snare. Resected and retrieved.
- One 8 mm polyp at the recto-sigmoid colon, removed
with a cold snare. Resected and retrieved.
- One small polyp in the sigmoid colon, removed with a
jumbo cold forceps. Resected and retrieved.
- Non-bleeding hemorrhoids.
Based off pathology reports there were tubular adenomas and a hyperplastic polyp
Patient Management
Escalation/DeEscalation of care consider admission/obs:
Hemoglobin of 8.5, this is right around patient's baseline which seems to range from the mid sevens to up as high as 10.9. At this time no indication for emergent transfusion
Patient's workup is largely unremarkable, CT without any acute emergent findings. Patient unable to have bowel movement here. Doubt C. difficile as patient does have formed stool. Will notify the GI electrician front staff to help expedite an outpatient
follow-up visit with the patient given her history. Patient advised on return precautions to the ER but otherwise stable for discharge home.
ED Attending Note
<Juan May PA-C - Last Filed: 10/13/25 21:20>
-
Portions of this chart may have been created with voice recognition software.� Occasional wrong word or��sound alike� substitutions may have occurred due to the inherent limitations of voice recognition software.
<Christiano Figueroa MD - Last Filed: 10/13/25 20:06>
ED Attending Note
Patient seen and examined by attending physician: Yes
ED Attending Note:
Patient presents to ED for evaluation secondary to persistent, intermittent bloody loose bowel movements x 1 week. Patient was admitted to the hospital earlier this year for similar complaint, which was treated for infectious colitis with
antibiotics. Afterwards, patient was recommended to follow-up with GI for an outpatient endoscopy/colonoscopy, which has not been performed, due to schedule complex. In addition, recently, patient was admitted at [facility] and treated for
complicated UTI, with course of treatment with antibiotics. Denies fever or chills. Denies abdominal pain or vomiting. Denies loss of appetite. Denies dizziness or weakness. Denies sick contact. Denies recent travel.
Physical Exam
General: no apparent distress, not acutely ill. afebrile
Head: nc/at. eomi
Neck: supple. normal range of motion
Heart: s1/s2 regular rate and rhythm
Lungs: no acute respiratory distress. clear bilaterally
Abdomen: normal bowel sounds. not tender. mild distention (chronic, per patient)
Neuro: alert and oriented x 3. no focal neurological deficits
Skin: no rash
Psychiatric: well kept. interactive and cooperative
Extremities: no edema. no calf tenderness.
Patient with an unremarkable workup in the ED, including blood work and CT abdomen pelvis. H&H noted, which appears to be chronic, which patient is aware of. Repeat abdominal exam: Soft and nontender.
Patient otherwise is afebrile, hemodynamically stable, and appears comfortable, at time of discharge. Recommended PCP follow-up for an outpatient evaluation, including stool culture as an outpatient, if diarrhea continues. In addition, GI from
[facility] will be contacted via [place] text, to expedite outpatient gastroenterology follow-up, including previously recommended colonoscopy, especially with recurrent diarrhea. Patient states that she lives at home with her family, who will be able to
observe her. Return precautions provided, i.e. fever/worsening pain/vomiting/inability to eat
Discharge Plan
Departure
Patient Disposition: Home (Routine Discharge)
Date of Disposition: 10/13/25
Time of Disposition: 19:51
Patient with high blood pressure during this ER visit?: Yes
Discharge Problem:
Diarrhea
Instructions: Diarrhea in teens and adults
Prescriptions:
No Action
levothyroxine 175 mcg Tablet
125 mcg PO DAILY AT 0700
ipratropium-albuterol 0.5 mg-3 mg(2.5 mg base)/3 mL Solution For Nebulization
3 ml INHALATION R Q6 PRN (Reason: sob/wheezing)
prednisone 1 mg Tablet
5 mg PO DAILY
insulin aspart U-100 100 unit/mL (3 mL) Insulin Pen
1 sliding scale dose SC AC
Patient Comments:
with meals
Rx Instructions:
sliding scale
Xarelto 20 mg tablet
20 mg PO QPM
acetaminophen 325 mg Tablet
650 mg PO Q4HPRN PRN (Reason: mild pain or temp >/= 100.4 F) Qty: 0 0RF
dicyclomine 10 mg capsule
10 mg PO BID
hydromorphone 4 mg Tablet
4 mg PO Q4HPRN PRN (Reason: moderate to severe pain) Qty: 15 0RF
furosemide [Lasix] 20 mg tablet
20 mg PO DAILY Qty: 10 0RF
esomeprazole magnesium [Nexium] 40 mg Capsule,Delayed Release(Dr/Ec)
40 mg PO BID
gabapentin 400 mg Capsule
400 mg PO TID
ondansetron 4 mg tablet,disintegrating
4 mg PO Q6H PRN (Reason: nausea/ vomitting)
alendronate 10 mg Tablet
10 mg PO DAILY
valsartan 40 mg Tablet
40 mg PO DAILY
sucralfate [Carafate] 1 gram tablet
1 g PO TID PRN (Reason: acid reflex)
insulin glargine 100 unit/mL Cartridge
30 unit SC HS
amoxicillin-pot clavulanate [Augmentin] 500-125 mg tablet
1 tab PO BID Qty: 10 0RF
metronidazole 500 mg tablet
500 mg PO BID Qty: 10 0RF
Referrals:
Patrick Slaughter MD [Family Provider]
Interventions
Interventions:
*Risk Screen - Suicide Last Done: 10/13/25 15:59
*General Assessment Last Done: 10/13/25 17:25
*Neglect/Abuse Screening Last Done: 10/13/25 15:59
*ED- Fall Risk Assessment Last Done: 10/13/25 17:25
*ED COVID-19 Vaccine History Last Done: 10/13/25 17:25
*ED Influenza Vaccine History Last Done: 10/13/25 17:25
*Nursing Disposition Last Done: 10/13/25 20:50
EZ-Xtyges-Mvunpfbxrw Assessment Last Done: 10/13/25 19:28
Discharge Date and Time
Discharge Date/Time: 10/13/25 20:50
Print Language: YEMENI
[2025-10-13 17:24] VITALS: BMI 32.1
[2025-10-13 17:25] VITALS: BP 160/83
[2025-10-13] MEDS: SOLU-CORTEF 200 MG IV (17:27)
[2025-10-13] MEDS: BENADRYL 50 MG IV (17:28)
[2025-10-13 17:29] LABS: Hematocrit 28.1 % (37.0-47.0); Hemoglobin 8.5 g/dL (12.0-16.0); Mean Corp Hgb Conc. 30.2 g/dL (33.0-37.0); Mean Corpuscular Volume 94.6 fL (81.0-99.0); Nucleated Red Blood Cells % 0 %; Platelet Count 128 10^3/uL (130-400); Red Cell Dist. Width 17.7 % (11.5-14.5)
[2025-10-13 17:31] VITALS: BP 181/98
[2025-10-13 17:41] LABS: INR 2.07; PT 23.8 Sec (11.4-14.6)
[2025-10-13 17:42] LABS: APTT 37.7 Sec (23.4-35.0)
[2025-10-13 17:51] VITALS: BP 155/86
[2025-10-13 17:54] LABS: ALT (SGPT) 11 U/L (0-35); AST (SGOT) 15 U/L (14-36); Albumin 3.4 g/dl (3.5-5.0); Alkaline Phosphatase 45 U/L (38-126); Blood Urea Nitrogen 20 mg/dl (7-17); Calcium 8.3 mg/dl (8.4-10.2); Carbon Dioxide 21 mmol/L (22-30); Chloride 113 mmol/L (98-107); Estimated Creatinine Clearance 59 ml/min; Glucose 294 mg/dl (70-99); Lipase 64 U/L (23-300); Potassium 4.3 mmol/L (3.5-5.1); Sodium 137 mmol/L (135-145); Total Protein 6.1 g/dl (6.3-8.2); eGFR > 60.00
[2025-10-13 18:00] VITALS: BP 160/83
[2025-10-13 19:02] VITALS: BP 173/80
== END 2025-10-13 20:50 | disposition home or self-care (01) ==
LOC: EMR 15:55
PROVIDERS: Physician Assistant Medical; EMERGENCY PHYSICIAN Emergency Medicine; FAMILY PHYSICIAN Internal Medicine
DX: R19.7 Diarrhea, unspecified (principal); E03.9 Hypothyroidism, unspecified; E11.9 Type 2 diabetes mellitus without complications; E78.00 Pure hypercholesterolemia, unspecified; I10 Essential (primary) hypertension; Z79.01 Long term (current) use of anticoagulants; Z87.891 Personal history of nicotine dependence; Z86.718 Personal history of other venous thrombosis and embolism; Z86.73 Personal history of transient ischemic attack (TIA), and cerebral infarction without residual deficits; Z98.84 Bariatric surgery status; Z90.49 Acquired absence of other specified parts of digestive tract; Z90.710 Acquired absence of both cervix and uterus; Z91.041 Radiographic dye allergy status
CPT/HCPCS: 96374; 96375; 99284; 74177; 80053; 83605; 83690; 85025; 85610; 85730; 86850; 86900; 86901; Q9967

== ENCOUNTER 2025-10-25 12:16 | Emergency (ER) | payer OTHER, SELFPAY ==
[2025-10-25 12:20] VITALS: BP 123/71
--- NOTE | 2025-10-25 12:52 | ED.GENMED ---
History of Present Illness
General
Chief Complaint: Abdominal Symptoms
Source: patient
Exam Limitations: none
Time Seen by Provider: 10/25/25 12:41
Nursing documentation reviewed up to this point in time: agreed with
History of Present Illness
History of Present Illness:
Patient is a 65-year-old female past medical history of CVA, chronic kidney disease stage III DVT with catheter thrombosis on Xarelto endocarditis hypertension hyperlipidemia IDDM chronic pain syndrome presents to the ER for diarrhea. Patient was
seen here October 13 and at that time she had 1 week of diarrhea. She had tried Imodium but that did not help. Patient was on antibiotics previous to this diarrhea episode. During ED visit patient had a CAT scan which was unremarkable patient
was encouraged to follow-up with GI.She has not been able to get a hold of GI and has been persistent diarrhea since and has about 5 episodes of liquid diarrhea per day. She does get abdominal cramping with each episode . She denies any abdominal
pain presently. She does feel weak and dehydrated.
Past History
Past History
ED Past Medical History: Asthma, COPD (?), CVA (Left sided weakness), GERD, HTN, Hypercholesterolemia, IDDM, Hypothyroidism, Psychiatric (Anxiety, PTSD) and Other (Cervical fracture, Headache, Endocarditis, Renal calculus, Cellulitis, PNA, Anemia,
DVT, )
ED Past Surgical History: Cholecystectomy, Gynecological (Hysterectomy), Urological (Bladder lift) and Other (Gastric bypass, Tummy tuck, IVC filter)
Social History
Tobacco: Former smoker
Alcohol: None
Drug: None
Personal:
Living: with family
Employment: Employed
Family History
Family History: Hypertension
Phy Exam
General Physical Exam
General Presentation: no apparent distress
General age: appears stated age
General Skin: warm and dry
General Habitus: normal
General Mental: alert
Cardiovascular Exam
Cardiovascular Exam: regular rate/rhythm, no murmur and normal peripheral pulses
Pulmonary Exam
Pulmonary Exam: lungs clear and no respiratory distress
Gastrointestinal Exam
Gastrointestinal Exam: non tender and soft
Neurological Exam
Neurological Exam: alert and oriented x3
Musculoskeletal Exam
Musculoskeletal Exam: full ROM
Skin Exam
Skin Exam: normal color and warm/dry
Psychiatric Exam
Psychiatric Exam: normal mood/affect
Course
Orders/Labs/Results
Orders:
Orders
10/25/25 13:00
Complete Blood Count/With Diff Urgent
Comprehensive Metabolic Panel Urgent
10/25/25 13:05
0.9% Sodium Chloride 1000 ml [Nss] 1,000 ml IV BOLUS
Abnormal Lab Results
10/25/25
13:00
RBC 3.11 L 10^6/uL
(4.20-5.40)
Hgb 9.1 L g/dL
(12.0-16.0)
Hct 29.4 L %
(37.0-47.0)
MCHC 31.0 L g/dL
(33.0-37.0)
RDW 16.3 H %
(11.5-14.5)
MPV 11.2 H fL
(7.4-10.4)
Absolute Neuts (auto) 6.8 H 10^3/uL
(1.4-6.5)
Potassium 3.4 L mmol/L
(3.5-5.1)
Chloride 111 H mmol/L
(98-107)
BUN 19 H mg/dl
(7-17)
Creatinine 1.1 H mg/dL
(0.6-1.0)
Glucose 124 H mg/dl
(70-99)
Calcium 8.2 L mg/dl
(8.4-10.2)
Total Protein 6.0 L g/dl
(6.3-8.2)
Albumin 3.4 L g/dl
(3.5-5.0)
10/25/25 13:00
10/25/25 13:00
Vital Signs
Initial and Last Documented VS:
Initial Vital Signs
Temp Pulse Resp BP Pulse Ox
99.5 F 78 18 123/71 96
10/25/25 12:20 10/25/25 12:20 10/25/25 12:20 10/25/25 12:20 10/25/25 12:20
Last Documented Vital Signs
Temp Pulse Resp BP Pulse Ox
99.5 F 52 14 123/71 94
10/25/25 12:20 10/25/25 13:45 10/25/25 13:45 10/25/25 12:20 10/25/25 13:45
MDM/Problems Addressed
Differential Diagnosis Includes:
not limited to: Diarrhea dehydration electrolyte abnormality
MDM/Problems Addressed:
Patient is a 65-year-old female presents back to the ER with diarrhea. Patient was seen here October 13 and complains of continued diarrhea and has not been able to follow-up with GI. From the diarrhea she felt weak however feel improved after
fluids. She presents however awake alert no acute distress she is afebrile with a normal white count she has chronic anemia hemoglobin stable; creatinine minimally elevated 1.1. Patient was given fluids here in the ER and as stated feeling better
feels want to go home. Abdomen soft and nontender she is very well-appearing. She has not been able to again have a bowel movement here.
will place a call to the java front end web developer GI to expedite appointment.
She is stable for discharge home.
Pt was made appt by GI java front end web developer for 10/[address] Fortune[address]
*Pulse Oximetry
SaO2: 96
Oxygen Mode of Delivery: Room air
Patient hypoxic: no
*Critical Care Note
Total Time (30-74mins, 75-104mins- exclusive of procedures): Not Applicable
Data Reviewed
Review of Other/Old Records Reveals: Labs, Radiology Studies and Other (previous ED visit )
ED Attending Note
-
Portions of this chart may have been created with voice recognition software.� Occasional wrong word or��sound alike� substitutions may have occurred due to the inherent limitations of voice recognition software.
Discharge Plan
Departure
Patient Disposition: Home (Routine Discharge)
Date of Disposition: 10/25/25
Time of Disposition: 15:31
Patient with high blood pressure during this ER visit?: No
Condition: Fair
Covid-19: Not Applicable
Discharge Problem:
Diarrhea
Instructions: Diarrhea in teens and adults
Prescriptions:
No Action
levothyroxine 175 mcg Tablet
125 mcg PO DAILY AT 0700
ipratropium-albuterol 0.5 mg-3 mg(2.5 mg base)/3 mL Solution For Nebulization
3 ml INHALATION R Q6 PRN (Reason: sob/wheezing)
prednisone 1 mg Tablet
5 mg PO DAILY
insulin aspart U-100 100 unit/mL (3 mL) Insulin Pen
1 sliding scale dose SC AC
Patient Comments:
with meals
Rx Instructions:
sliding scale
Xarelto 20 mg tablet
20 mg PO QPM
acetaminophen 325 mg Tablet
650 mg PO Q4HPRN PRN (Reason: mild pain or temp >/= 100.4 F) Qty: 0 0RF
dicyclomine 10 mg capsule
10 mg PO BID
hydromorphone 4 mg Tablet
4 mg PO Q4HPRN PRN (Reason: moderate to severe pain) Qty: 15 0RF
furosemide [Lasix] 20 mg tablet
20 mg PO DAILY Qty: 10 0RF
esomeprazole magnesium [Nexium] 40 mg Capsule,Delayed Release(Dr/Ec)
40 mg PO BID
gabapentin 400 mg Capsule
400 mg PO TID
ondansetron 4 mg tablet,disintegrating
4 mg PO Q6H PRN (Reason: nausea/ vomitting)
alendronate 10 mg Tablet
10 mg PO DAILY
valsartan 40 mg Tablet
40 mg PO DAILY
sucralfate [Carafate] 1 gram tablet
1 g PO TID PRN (Reason: acid reflex)
insulin glargine 100 unit/mL Cartridge
30 unit SC HS
amoxicillin-pot clavulanate [Augmentin] 500-125 mg tablet
1 tab PO BID Qty: 10 0RF
metronidazole 500 mg tablet
500 mg PO BID Qty: 10 0RF
Referrals:
Patrick Slaughter MD [Family Provider]
Kay Baez MD [Active, Gastroenterology]
Activity Restrictions/Additional Instructions:
As discussed please follow-up with GI.
GI java front end web developer should reach out to you to schedule an appointment as soon as possible. Continue to stay well-hydrated. You are also given outpatient slip for stool cultures including C. difficile. Return if any worsening of symptoms.
Interventions
Interventions:
*Risk Screen - Suicide Last Done: 10/25/25 12:20
*Neglect/Abuse Screening Last Done: 10/25/25 12:20
*ED COVID-19 Vaccine History Last Done: 10/25/25 12:20
*ED Influenza Vaccine History Last Done: 10/25/25 12:20
*Nursing Disposition Last Done: 10/25/25 16:02
Discharge Date and Time
Print Language: LATVIAN
[2025-10-25 13:10] LABS: Hematocrit 29.4 % (37.0-47.0); Hemoglobin 9.1 g/dL (12.0-16.0); Mean Corp Hgb Conc. 31.0 g/dL (33.0-37.0); Mean Corpuscular Volume 94.5 fL (81.0-99.0); Nucleated Red Blood Cells % 0 %; Platelet Count 143 10^3/uL (130-400); Red Cell Dist. Width 16.3 % (11.5-14.5)
[2025-10-25 13:24] LABS: ALT (SGPT) 14 U/L (0-35); AST (SGOT) 15 U/L (14-36); Albumin 3.4 g/dl (3.5-5.0); Alkaline Phosphatase 53 U/L (38-126); Blood Urea Nitrogen 19 mg/dl (7-17); Calcium 8.2 mg/dl (8.4-10.2); Carbon Dioxide 25 mmol/L (22-30); Chloride 111 mmol/L (98-107); Glucose 124 mg/dl (70-99); Potassium 3.4 mmol/L (3.5-5.1); Sodium 139 mmol/L (135-145); Total Protein 6.0 g/dl (6.3-8.2); eGFR 56.11
[2025-10-25] MEDS: NSS 1000 IV (13:59)
[2025-10-25 14:00] VITALS: BP 121/65
[2025-10-25 15:00] VITALS: BP 137/69
== END 2025-10-25 16:31 | disposition home or self-care (01) ==
LOC: EMR 12:16
PROVIDERS: Nurse Practitioner; EMERGENCY PHYSICIAN Emergency Medicine; FAMILY PHYSICIAN Internal Medicine
DX: R19.7 Diarrhea, unspecified (principal); E10.22 Type 1 diabetes mellitus with diabetic chronic kidney disease; I12.9 Hypertensive chronic kidney disease with stage 1 through stage 4 chronic kidney disease, or unspecified chronic kidney disease; N18.30 Chronic kidney disease, stage 3 unspecified; E78.00 Pure hypercholesterolemia, unspecified; I69.354 Hemiplegia and hemiparesis following cerebral infarction affecting left non-dominant side; D64.9 Anemia, unspecified; E03.9 Hypothyroidism, unspecified; K21.9 Gastro-esophageal reflux disease without esophagitis; F41.9 Anxiety disorder, unspecified; F43.10 Post-traumatic stress disorder, unspecified; G89.4 Chronic pain syndrome; Z79.01 Long term (current) use of anticoagulants; Z79.4 Long term (current) use of insulin; Z86.718 Personal history of other venous thrombosis and embolism; Z87.891 Personal history of nicotine dependence; Z98.84 Bariatric surgery status; Z82.49 Family history of ischemic heart disease and other diseases of the circulatory system
CPT/HCPCS: 99284; 96360; 80053; 85025

== ENCOUNTER 2025-11-24 23:29 | Emergency (ER) | payer OTHER, SELFPAY ==
[2025-11-24 23:40] VITALS: BP 148/91
[2025-11-25 00:03] VITALS: BP 138/87
--- NOTE | 2025-11-25 00:13 | ED.GENMED ---
History of Present Illness
<Donato Monterroso DO - Last Filed: 11/25/25 03:16>
General
Chief Complaint: Abdominal Pain
Time Seen by Provider: 11/25/25 00:02
Nursing documentation reviewed up to this point in time: agreed with
History of Present Illness
History of Present Illness:
65-year-old female presents to the ER for evaluation of nausea, vomiting and chest discomfort which has been ongoing over the last few days. Patient states that she has had trouble with acid reflux in the past and does see GI regularly. She is
been taking all of her routine prescription medications and had no improvement in her symptoms. Tonight she celebrated the holiday with her family and had turkey for dinner which she said was a little fattier than expected, which she believes
prompted her symptoms. She had several episodes of retching. She states that she has been having normal bowel movements. No recent diarrhea. No fevers or chills. No cough or cold symptoms. She has no prior personal history of ACS but she has
had several strokes in the past.
Past History
<Donato Monterroso DO - Last Filed: 11/25/25 03:16>
Past History
ED Past Medical History: Asthma, COPD (?), CVA (Left sided weakness), GERD, HTN, Hypercholesterolemia, IDDM, Hypothyroidism, Psychiatric (Anxiety, PTSD) and Other (Cervical fracture, Headache, Endocarditis, Renal calculus, Cellulitis, PNA, Anemia,
DVT, )
ED Past Surgical History: Cholecystectomy, Gynecological (Hysterectomy), Urological (Bladder lift) and Other (Gastric bypass, Tummy tuck, IVC filter)
Social History
Tobacco: Former smoker
Alcohol: None
Drug: None
Personal:
Living: with family
Employment: Employed
Family History
Family History: Hypertension
Review of Systems
<Donato Monterroso DO - Last Filed: 11/25/25 03:16>
Review of Systems
Allergies reviewed?: Yes
Phy Exam
<Donato Monterroso, DO - Last Filed: 11/25/25 03:16>
Physical Exam
Physical Exam:
Patient is awake, alert, appears in no acute distress, head is NCAT, PERRL, EOMI mucous membranes moist, conjunctiva pink, heart regular rate and rhythm without murmurs or ectopy, lungs are clear to auscultation without wheezes rales or rhonchi, no
JVD, abdomen is soft with mild diffuse pain on palpation, normoactive bowel sounds, no hernias, extremities without edema, GCS is 15
Course
<Donato Monterroso, - Last Filed: 11/25/25 03:16>
Orders/Labs/Results
Orders:
Orders
11/24/25 23:45
EKG [Electrocardiogram (*1)] Urgent
Reason for Study: Abdominal Pain
EKG- Treatment ONCE
11/25/25 00:11
CT Abd/pel W Iv And Oral Contr Urgent
Comment: bariatric protocol
Reason For Exam: vomiting
IV Insert/Care/Rem.- Treatment PRN
0.9% Sodium Chloride 1000 ml [Nss] 1,000 ml IV BOLUS
Famotidine [Pepcid] 20 mg IV NOW STA
Iohexol [Omnipaque] See Protocol PO NOW STA
Ondansetron Injectable [Zofran] 4 mg IV NOW STA
11/25/25 00:53
Complete Blood Count/With Diff Urgent
Comprehensive Metabolic Panel Urgent
Lipase Urgent
PTT Urgent
Prothrombin Time Urgent
Troponin I Urgent
11/25/25 00:59
Diphenhydramine [Benadryl] 50 mg IV NOW STA
Hydrocortisone Sod Succinate [Solu-Cortef] 200 mg IV NOW STA
11/25/25 02:37
Urinalysis Reflex To Culture Urgent
Date Specimen was Collected: 11/25/25
Time Specimen was Collected: 02:34
Urine Microscopic Reflex Cult Urgent
Urine Culture Urgent
ESTHER Source: U
Specimen Description:
Date Specimen was Collected: 11/25/25
Time Specimen was Collected: 02:34
Abnormal Lab Results
11/25/25 11/25/25
00:53 02:37
WBC 12.0 H 10^3/uL
(4.8-10.8)
RBC 3.31 L 10^6/uL
(4.20-5.40)
Hgb 9.4 L g/dL
(12.0-16.0)
Hct 30.3 L %
(37.0-47.0)
MCHC 31.0 L g/dL
(33.0-37.0)
RDW 14.7 H %
(11.5-14.5)
Abs Immat Gran (auto) 0.1 H 10^3/uL
(0-0.05)
Absolute Lymphs (auto) 4.6 H 10^3/uL
(1.2-3.4)
Immature Gran % 1.2 H %
(0-0.5)
Carbon Dioxide 31 H mmol/L
(22-30)
BUN 22 H mg/dl
(7-17)
Creatinine 1.3 H mg/dL
(0.6-1.0)
Glucose 174 H mg/dl
(70-99)
Total Protein 6.2 L g/dl
(6.3-8.2)
Albumin 3.4 L g/dl
(3.5-5.0)
Urine Nitrite (Reflex) Positive A
(Negative)
Urine Bilirubin 1+ A
(Negative)
Urine Urobilinogen 2+ A
(Neg - 1+)
Urine WBC (Reflex) 26-30 A /HPF
(0-5)
Urine Bacteria (Reflex) Many A
(Negative)
Urine Albumin (Reflex) 1+ A
(Neg - Trace)
11/25/25 00:53
11/25/25 00:53
Mild elevation of white blood count. Mild elevation in BUN and creatinine, although this is similar to prior from 10/25/2025. Patient also has mild anemia which is stable compared to prior labs
Vital Signs
Initial and Last Documented VS:
Initial Vital Signs
Temp Pulse Resp BP Pulse Ox
98.6 F 87 18 148/91 95
11/24/25 23:40 11/24/25 23:40 11/24/25 23:40 11/24/25 23:40 11/24/25 23:40
Last Documented Vital Signs
Temp Pulse Resp BP Pulse Ox
98.6 F 58 14 177/94 91
11/24/25 23:40 11/25/25 05:15 11/25/25 05:15 11/25/25 03:00 11/25/25 03:15
<Ravi Malone, - Last Filed: 11/25/25 06:45>
Orders/Labs/Results
Orders:
Orders
11/24/25 23:45
EKG [Electrocardiogram (*1)] Urgent
Reason for Study: Abdominal Pain
EKG- Treatment ONCE
11/25/25 00:11
CT Abd/pel W Iv And Oral Contr Urgent
Comment: bariatric protocol
Reason For Exam: vomiting
IV Insert/Care/Rem.- Treatment PRN
0.9% Sodium Chloride 1000 ml [Nss] 1,000 ml IV BOLUS
Famotidine [Pepcid] 20 mg IV NOW STA
Iohexol [Omnipaque] See Protocol PO NOW STA
Ondansetron Injectable [Zofran] 4 mg IV NOW STA
11/25/25 00:53
Complete Blood Count/With Diff Urgent
Comprehensive Metabolic Panel Urgent
Lipase Urgent
PTT Urgent
Prothrombin Time Urgent
Troponin I Urgent
11/25/25 00:59
Diphenhydramine [Benadryl] 50 mg IV NOW STA
Hydrocortisone Sod Succinate [Solu-Cortef] 200 mg IV NOW STA
11/25/25 02:37
Urinalysis Reflex To Culture Urgent
Date Specimen was Collected: 11/25/25
Time Specimen was Collected: 02:34
Urine Microscopic Reflex Cult Urgent
Urine Culture Urgent
ESTHER Source: U
Specimen Description:
Date Specimen was Collected: 11/25/25
Time Specimen was Collected: 02:34
Abnormal Lab Results
11/25/25 11/25/25
00:53 02:37
WBC 12.0 H 10^3/uL
(4.8-10.8)
RBC 3.31 L 10^6/uL
(4.20-5.40)
Hgb 9.4 L g/dL
(12.0-16.0)
Hct 30.3 L %
(37.0-47.0)
MCHC 31.0 L g/dL
(33.0-37.0)
RDW 14.7 H %
(11.5-14.5)
Abs Immat Gran (auto) 0.1 H 10^3/uL
(0-0.05)
Absolute Lymphs (auto) 4.6 H 10^3/uL
(1.2-3.4)
Immature Gran % 1.2 H %
(0-0.5)
Carbon Dioxide 31 H mmol/L
(22-30)
BUN 22 H mg/dl
(7-17)
Creatinine 1.3 H mg/dL
(0.6-1.0)
Glucose 174 H mg/dl
(70-99)
Total Protein 6.2 L g/dl
(6.3-8.2)
Albumin 3.4 L g/dl
(3.5-5.0)
Urine Nitrite (Reflex) Positive A
(Negative)
Urine Bilirubin 1+ A
(Negative)
Urine Urobilinogen 2+ A
(Neg - 1+)
Urine WBC (Reflex) 26-30 A /HPF
(0-5)
Urine Bacteria (Reflex) Many A
(Negative)
Urine Albumin (Reflex) 1+ A
(Neg - Trace)
11/25/25 00:53
11/25/25 00:53
Vital Signs
Initial and Last Documented VS:
Initial Vital Signs
Temp Pulse Resp BP Pulse Ox
98.6 F 87 18 148/91 95
11/24/25 23:40 11/24/25 23:40 11/24/25 23:40 11/24/25 23:40 11/24/25 23:40
Last Documented Vital Signs
Temp Pulse Resp BP Pulse Ox
98.6 F 58 14 177/94 91
11/24/25 23:40 11/25/25 05:15 11/25/25 05:15 11/25/25 03:00 11/25/25 03:15
<Juan May PA-C - Last Filed: 11/28/25 11:27>
Orders/Labs/Results
Orders:
Orders
11/24/25 23:45
EKG [Electrocardiogram (*1)] Urgent
Reason for Study: Abdominal Pain
EKG- Treatment ONCE
11/25/25 00:11
CT Abd/pel W Iv And Oral Contr Urgent
Comment: bariatric protocol
Reason For Exam: vomiting
IV Insert/Care/Rem.- Treatment PRN
0.9% Sodium Chloride 1000 ml [Nss] 1,000 ml IV BOLUS
Famotidine [Pepcid] 20 mg IV NOW STA
Iohexol [Omnipaque] See Protocol PO NOW STA
Ondansetron Injectable [Zofran] 4 mg IV NOW STA
11/25/25 00:53
Complete Blood Count/With Diff Urgent
Comprehensive Metabolic Panel Urgent
Lipase Urgent
PTT Urgent
Prothrombin Time Urgent
Troponin I Urgent
11/25/25 00:59
Diphenhydramine [Benadryl] 50 mg IV NOW STA
Hydrocortisone Sod Succinate [Solu-Cortef] 200 mg IV NOW STA
11/25/25 02:37
Urinalysis Reflex To Culture Urgent
Date Specimen was Collected: 11/25/25
Time Specimen was Collected: 02:34
Urine Microscopic Reflex Cult Urgent
Urine Culture Urgent
ESTHER Source: U
Specimen Description:
Date Specimen was Collected: 11/25/25
Time Specimen was Collected: 02:34
Abnormal Lab Results
11/25/25 11/25/25
00:53 02:37
WBC 12.0 H 10^3/uL
(4.8-10.8)
RBC 3.31 L 10^6/uL
(4.20-5.40)
Hgb 9.4 L g/dL
(12.0-16.0)
Hct 30.3 L %
(37.0-47.0)
MCHC 31.0 L g/dL
(33.0-37.0)
RDW 14.7 H %
(11.5-14.5)
Abs Immat Gran (auto) 0.1 H 10^3/uL
(0-0.05)
Absolute Lymphs (auto) 4.6 H 10^3/uL
(1.2-3.4)
Immature Gran % 1.2 H %
(0-0.5)
Carbon Dioxide 31 H mmol/L
(22-30)
BUN 22 H mg/dl
(7-17)
Creatinine 1.3 H mg/dL
(0.6-1.0)
Glucose 174 H mg/dl
(70-99)
Total Protein 6.2 L g/dl
(6.3-8.2)
Albumin 3.4 L g/dl
(3.5-5.0)
Urine Nitrite (Reflex) Positive A
(Negative)
Urine Bilirubin 1+ A
(Negative)
Urine Urobilinogen 2+ A
(Neg - 1+)
Urine WBC (Reflex) 26-30 A /HPF
(0-5)
Urine Bacteria (Reflex) Many A
(Negative)
Urine Albumin (Reflex) 1+ A
(Neg - Trace)
11/25/25 00:53
11/25/25 00:53
Vital Signs
Initial and Last Documented VS:
Initial Vital Signs
Temp Pulse Resp BP Pulse Ox
98.6 F 87 18 148/91 95
11/24/25 23:40 11/24/25 23:40 11/24/25 23:40 11/24/25 23:40 11/24/25 23:40
Last Documented Vital Signs
Temp Pulse Resp BP Pulse Ox
98.6 F 58 14 177/94 91
11/24/25 23:40 11/25/25 05:15 11/25/25 05:15 11/25/25 03:00 11/25/25 03:15
Blancalt;Donato Monterroso DO - Last Filed: 11/25/25 03:16>
MDM/Problems Addressed
Differential Diagnosis Includes:
Differential diagnosis to consider but not limited to esophageal spasm, gastric outlet obstruction, bowel obstruction, gastroenteritis along with other etiologies considered
Chronic conditions affecting care:
Previous gastric bypass surgery, asthma, chronic use of home oxygen, hypertension, hyperlipidemia, previous DVT, diarrhea, GERD, irritable bowel, diabetes, fatty liver, gallstones status post cholecystectomy
<Donato Monterroso, DO - Last Filed: 11/25/25 03:16>
*Pulse Oximetry
SaO2: 95
Oxygen Mode of Delivery: Room air
Data Reviewed
Review of Other/Old Records Reveals: Progress Notes (I reviewed most recent discharge summary dated 02/08/2025, Dr. Thomason,-patient was admitted for acute infectious colitis with bloody diarrhea. She also does have prior history of anemia,
stroke, hypertension, type 2 diabetes, PTSD, endocarditis, chronic pain, hyperlipidemia, COPD on 2L NCO2 HS)
<Ravi Malone, DO - Last Filed: 11/25/25 06:45>
*Pulse Oximetry
Patient hypoxic: no
*Critical Care Note
Total Time (30-74mins, 75-104mins- exclusive of procedures): Not Applicable
<Donato Monterroso, DO - Last Filed: 11/25/25 03:16>
Update Note
Update Note:
I discussed with patient plan for CT and labs. She agrees with plan at current. She does have an iodine allergy which she reports her throat closes. She states she has received steroid prep in the past and tolerated IV contrast without any
difficulty. Will order standard prep protocol. Patient also given oral contrast given her prior history of bariatric surgery.
0209: Patient resting comfortably, no vomiting noted while awaiting CT scan.
0315: Full pt care transferred to Dr Malone at the end of my shift pending CT results
<Ravi Malone, DO - Last Filed: 11/25/25 06:45>
Update Note
Update Note:
I discussed with patient plan for CT and labs. She agrees with plan at current. She does have an iodine allergy which she reports her throat closes. She states she has received steroid prep in the past and tolerated IV contrast without any
difficulty. Will order standard prep protocol. Patient also given oral contrast given her prior history of bariatric surgery.
0209: Patient resting comfortably, no vomiting noted while awaiting CT scan.
0315: Full pt care transferred to Dr Malone at the end of my shift pending CT results
NAME: DANIELLA MONTE
DATE OF EXAM: 11/25/2025
Patient No: [id number]
Physician: BROCK
Date of : 1960
Past Medical History (entered by Technologist):
Reason For Exam (entered by Technologist): vomiting, abd pain. hx bariatric surgery
Other Notes (entered by Technologist): prior sent 10/2025.
Additional Information (per [facility]):
CT ABDOMEN/PELVIS WITH CONTRAST
IMPRESSION:
1. No acute abnormality within the abdomen or pelvis.
2. No bowel obstruction. Status post cholecystectomy. Normal appendix.
Incidentals:
- Moderate stool burden
- No obstructive uropathy.
- No hepatic or pancreatic mass.
- No abdominal aortic aneurysm.
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
- No acute abnormality within the visualized lungs.
- Para umbilical fat-containing hernia without suspicious features
Case finalized on 11/25/25 04:08 EDT
Christiano Scott M.D.
This report has been electronically signed and verified by the Radiologist whose name is printed above.
Discussed CT results with patient. She states that she is feeling better. She will take some Nexium when she gets home. She has no further questions and wishes to be discharged.
<Juan May PA-C - Last Filed: 11/28/25 11:27>
Update Note
Update Note:
I discussed with patient plan for CT and labs. She agrees with plan at current. She does have an iodine allergy which she reports her throat closes. She states she has received steroid prep in the past and tolerated IV contrast without any
difficulty. Will order standard prep protocol. Patient also given oral contrast given her prior history of bariatric surgery.
0209: Patient resting comfortably, no vomiting noted while awaiting CT scan.
0315: Full pt care transferred to Dr Malone at the end of my shift pending CT results
NAME: DANIELLA MONTE
DATE OF EXAM: 11/25/2025
Patient No: [id number]
Physician: BROCK
Date of : 1960
Past Medical History (entered by Technologist):
Reason For Exam (entered by Technologist): vomiting, abd pain. hx bariatric surgery
Other Notes (entered by Technologist): prior sent 10/2025.
Additional Information (per [facility]):
CT ABDOMEN/PELVIS WITH CONTRAST
IMPRESSION:
1. No acute abnormality within the abdomen or pelvis.
2. No bowel obstruction. Status post cholecystectomy. Normal appendix.
Incidentals:
- Moderate stool burden
- No obstructive uropathy.
- No hepatic or pancreatic mass.
- No abdominal aortic aneurysm.
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
- No acute abnormality within the visualized lungs.
- Para umbilical fat-containing hernia without suspicious features
Case finalized on 11/25/25 04:08 EDT
Christiano Scott M.D.
This report has been electronically signed and verified by the Radiologist whose name is printed above.
Discussed CT results with patient. She states that she is feeling better. She will take some Nexium when she gets home. She has no further questions and wishes to be discharged.
11/28/2025, 11:26 AM: Patient's urine culture grew greater than 100,000 CFU of ESBL E. coli. Based on record review it does not appear patient had any urinary symptoms and it seems as if most of her symptoms are more upper GI related. I contacted
the patient via telephone, left a voicemail for the patient to call back, patient may need oral antibiotics based off discussion or if she has any symptoms of UTI.
ED Attending Note
<Donato Monterroso DO - Last Filed: 11/25/25 03:16>
-
Portions of this chart may have been created with voice recognition software.� Occasional wrong word or��sound alike� substitutions may have occurred due to the inherent limitations of voice recognition software.
Discharge Plan
Departure
Patient Disposition: Home (Routine Discharge)
Date of Disposition: 11/25/25
Time of Disposition: 05:17
Patient with high blood pressure during this ER visit?: Yes
Discharge Problem:
Nausea & vomiting, Gastric reflux, Abdominal pain
Instructions: Abdominal Pain
Prescriptions:
No Action
levothyroxine 175 mcg Tablet
125 mcg PO DAILY AT 0700
ipratropium-albuterol 0.5 mg-3 mg(2.5 mg base)/3 mL Solution For Nebulization
3 ml INHALATION R Q6 PRN (Reason: sob/wheezing)
prednisone 1 mg Tablet
5 mg PO DAILY
insulin aspart U-100 100 unit/mL (3 mL) Insulin Pen
1 sliding scale dose SC AC
Patient Comments:
with meals
Rx Instructions:
sliding scale
Xarelto 20 mg tablet
20 mg PO QPM
acetaminophen 325 mg Tablet
650 mg PO Q4HPRN PRN (Reason: mild pain or temp >/= 100.4 F) Qty: 0 0RF
dicyclomine 10 mg capsule
10 mg PO BID
hydromorphone 4 mg Tablet
4 mg PO Q4HPRN PRN (Reason: moderate to severe pain) Qty: 15 0RF
furosemide [Lasix] 20 mg tablet
20 mg PO DAILY Qty: 10 0RF
esomeprazole magnesium [Nexium] 40 mg Capsule,Delayed Release(Dr/Ec)
40 mg PO BID
gabapentin 400 mg Capsule
400 mg PO TID
ondansetron 4 mg tablet,disintegrating
4 mg PO Q6H PRN (Reason: nausea/ vomitting)
alendronate 10 mg Tablet
10 mg PO DAILY
valsartan 40 mg Tablet
40 mg PO DAILY
sucralfate [Carafate] 1 gram tablet
1 g PO TID PRN (Reason: acid reflex)
insulin glargine 100 unit/mL Cartridge
30 unit SC HS
amoxicillin-pot clavulanate [Augmentin] 500-125 mg tablet
1 tab PO BID Qty: 10 0RF
metronidazole 500 mg tablet
500 mg PO BID Qty: 10 0RF
Referrals:
UNKNOWN - PT DOES,NOT KNOW [Family Provider]
Interventions
Interventions:
*General Assessment Last Done: 11/25/25 02:34
*Neglect/Abuse Screening Last Done: 11/25/25 02:34
*ED COVID-19 Vaccine History Last Done: 11/25/25 02:34
*ED Influenza Vaccine History Last Done: 11/25/25 02:35
[facility] Fall Risk Assessment Tool Last Done: 11/25/25 03:59
*Risk Screen - Suicide (C-SSRS) Last Done: 11/24/25 23:40
*Nursing Disposition Last Done: 11/25/25 06:10
BT-Ipfoqt-Gqswwlfyny Assessment Last Done: 11/25/25 03:56
Discharge Date and Time
Discharge Date/Time: 11/25/25 06:10
Print Language: [id number]
[2025-11-25] MEDS: ZOFRAN 4 MG IV (00:54)
[2025-11-25] MEDS: PEPCID 20 MG IV (00:54)
[2025-11-25] MEDS: NSS 1000 IV (00:56)
[2025-11-25 01:00] VITALS: BP 140/87
[2025-11-25 01:11] LABS: Hematocrit 30.3 % (37.0-47.0); Hemoglobin 9.4 g/dL (12.0-16.0); Mean Corp Hgb Conc. 31.0 g/dL (33.0-37.0); Mean Corpuscular Volume 91.5 fL (81.0-99.0); Nucleated Red Blood Cells % 0 %; Platelet Count 190 10^3/uL (130-400); Red Cell Dist. Width 14.7 % (11.5-14.5)
[2025-11-25 01:19] LABS: INR 0.98; PT 12.8 Sec (11.4-14.6)
[2025-11-25 01:20] LABS: APTT 25.4 Sec (23.4-35.0)
[2025-11-25] MEDS: OMNIPAQUE 50 ML PO (01:31)
[2025-11-25 01:37] LABS: ALT (SGPT) 19 U/L (0-35); AST (SGOT) 18 U/L (14-36); Albumin 3.4 g/dl (3.5-5.0); Alkaline Phosphatase 61 U/L (38-126); Blood Urea Nitrogen 22 mg/dl (7-17); Calcium 9.2 mg/dl (8.4-10.2); Carbon Dioxide 31 mmol/L (22-30); Chloride 103 mmol/L (98-107); Glucose 174 mg/dl (70-99); Lipase 88 U/L (23-300); Potassium 4.6 mmol/L (3.5-5.1); Sodium 138 mmol/L (135-145); Total Protein 6.2 g/dl (6.3-8.2); eGFR 45.92
[2025-11-25 01:50] LABS: Troponin I < 0.012 ng/ml
[2025-11-25 02:01] VITALS: BP 189/106
[2025-11-25 02:36] VITALS: BMI 36.2
[2025-11-25] MEDS: BENADRYL 50 MG IV (02:40)
[2025-11-25] MEDS: SOLU-CORTEF 200 MG IV (02:40)
[2025-11-25 02:45] VITALS: BP 164/100
[2025-11-25 03:00] VITALS: BP 177/94
[2025-11-25 04:21] LABS: Urine Character Clear (Clear)
[2025-11-25 05:05] LABS: Urine Squamous Cell >30 /LPF (Few)
[2025-11-25 05:06] LABS: Urine Urothelial Cell >30 /LPF (FEW); Urine White Cell 26-30 /HPF (0-5)
[2025-11-25 05:07] LABS: Urine Red Blood Cell 0-2 /HPF (0-2)
== END 2025-11-25 06:10 | disposition home or self-care (01) ==
LOC: EMR 23:29
PROVIDERS: EMERGENCY PHYSICIAN Emergency Medicine
DX: R11.2 Nausea with vomiting, unspecified (principal); K21.9 Gastro-esophageal reflux disease without esophagitis; R10.9 Unspecified abdominal pain; D64.9 Anemia, unspecified; E10.9 Type 1 diabetes mellitus without complications; I10 Essential (primary) hypertension; E78.00 Pure hypercholesterolemia, unspecified; I69.354 Hemiplegia and hemiparesis following cerebral infarction affecting left non-dominant side; J44.89 Other specified chronic obstructive pulmonary disease; Z99.81 Dependence on supplemental oxygen; E03.9 Hypothyroidism, unspecified; F41.9 Anxiety disorder, unspecified; F43.10 Post-traumatic stress disorder, unspecified; K42.9 Umbilical hernia without obstruction or gangrene; K76.0 Fatty (change of) liver, not elsewhere classified; Z79.4 Long term (current) use of insulin; Z98.84 Bariatric surgery status; Z87.891 Personal history of nicotine dependence; Z86.718 Personal history of other venous thrombosis and embolism; Z88.8 Allergy status to other drugs, medicaments and biological substances; Z91.041 Radiographic dye allergy status; Z82.49 Family history of ischemic heart disease and other diseases of the circulatory system
CPT/HCPCS: 99284; 96374; 96375 ×3; 96361; 74177; 80053; 81003; 81015; 83690; 84484; 85025; 85610; 85730; 87077; 87086; 87186; 93005; Q9967